=== PATIENT | male | born 1960 | race African-American/Black ===

== ENCOUNTER 2017-02-01 04:23 | Emergency (ER) | payer MEDICARE, OTHER ==
[2017-02-01 04:45] VITALS: BP 136/79; PULSE 74; RESP 20; TEMP 97.8
[2017-02-01] MEDS ORDERED: ONDANSETRON 4 MG/2 ML VIAL IVP STA (05:07)
[2017-02-01] MEDS ORDERED: SODIUM CHLORIDE 0.9% 1,000 ML IV STA (05:07)
[2017-02-01] MEDS ORDERED: MORPHINE SULFATE 4 MG/ML SYRINGE IV STA (05:07)
--- NOTE | 2017-02-01 05:11 | ED ---
Nausea/Vomiting/Diarrhea HPI - General Chief complaint: Nausea/Vomiting/Diarrhea Stated complaint: abd pain Time Seen by Provider: 02/01/17 05:02 Source: patient Mode of arrival: ambulatory Limitations: no limitations - History of Present Illness Initial comments: This patient's 56-year-old man with history of pancreatitis who presents to be evaluated for vomiting and abdominal pain that he states are identical to his previous pancreatitis. The patient states however that he is out of the usual Zofran that he takes, and that if he had that at home he may have been able to avoid coming in for this. The patient states that the pain is about usual with his flareups. He has now noticed any blood or coffee-ground emesis. He has vomited mainly anything he has had to drink and he had an episode of possible bile. Patient denies change in urination or bowel movements. MD complaint: nausea, vomiting, abdominal pain Onset/Timin -: hour(s) Description of Vomiting: food contents, bilious Associated Abdominal Pain: Yes Location: LUQ, RUQ Radiation: none Severity: moderate Quality: aching Consistency: constant Improves with: none Worsens with: none - Related Data Home Medications Medication Instructions Recorded Confirmed Ondansetron Odt [Zofran ODT] 8 mg PO Q8HR PRN 04/16/15 02/01/17 Previous Rx's Medication Instructions Recorded Ondansetron Odt [Zofran ODT] 4 mg PO Q8HR PRN #10 tab 02/01/17 Allergies Allergy/AdvReac Type Severity Reaction Status Date / Time codeine phosphate AdvReac Nausea Verified 07/12/15 20:49 [From Tylenol-Codeine #3] brazil nuts Allergy Unknown Uncoded 07/12/15 20:49 Review of Systems ROS Statement: Those systems with pertinent positive or pertinent negative responses have been documented in the HPI. ROS Other: All systems not noted in ROS Statement are negative. Constitutional: Denies: fever, chills Respiratory: Denies: cough, dyspnea Cardiovascular: Denies: chest pain, edema, syncope Gastrointestinal: Reports: abdominal pain, nausea, vomiting. Denies: diarrhea, constipation, melena, hematochezia Genitourinary: Denies: dysuria, hematuria Musculoskeletal: Reports: back pain Skin: Denies: rash Neurological: Denies: headache, weakness, numbness Past Medical History Additional Past Medical History / Comment(s): chronic abd pain, pancreatitis, celiac, celiac arterial compression syndrome, History of Any Multi-Drug Resistant Organisms: None Reported Past Surgical History: Hernia Repair Additional Past Surgical History / Comment(s): colonoscopy, endoscopy, Past Psychological History: No Psychological Hx Reported Smoking Status: Current every day smoker Past Alcohol Use History: None Reported Past Drug Use History: Marijuana General Exam Limitations: no limitations General appearance: alert, in no apparent distress Head exam: Present: atraumatic, normocephalic Eye exam: Present: normal appearance. Absent: scleral icterus, conjunctival injection ENT exam: Present: mucous membranes dry Respiratory exam: Present: normal lung sounds bilaterally. Absent: respiratory distress, wheezes, rales, rhonchi, stridor Cardiovascular Exam: Present: regular rate, normal rhythm, normal heart sounds. Absent: systolic murmur, diastolic murmur, rubs, gallop GI/Abdominal exam: Present: soft, tenderness, guarding, diminished bowel sounds. Absent: distended, rebound, rigid, mass, pulsatile mass, hernia Extremities exam: Present: normal inspection, normal capillary refill. Absent: pedal edema, calf tenderness Back exam: Present: normal inspection. Absent: CVA tenderness (R), CVA tenderness (L) Psychiatric exam: Present: anxious Skin exam: Present: warm, dry, intact, normal color. Absent: rash Course Vital Signs 02/01/17 04:43 Temperature 97.8 F Pulse Rate 74 Respiratory 20 Rate Blood Pressure 136/79 O2 Sat by Pulse 98 Oximetry Medical Decision Making - Lab Data Result diagrams: 02/01/17 05:40 02/01/17 05:40 Lab Results 02/01/17 02/01/17 Range/Units 05:40 05:40 WBC 13.4 H (3.8-10.6) k/uL RBC 4.43 (4.30-5.90) m/uL Hgb 12.2 L (13.0-17.5) gm/dL Hct 37.3 L (39.0-53.0) % MCV 84.2 (80.0-100.0) fL MCH 27.5 (25.0-35.0) pg MCHC 32.6 (31.0-37.0) g/dL RDW 16.8 H (11.5-15.5) % Plt Count 360 (150-450) k/uL Neutrophils % 83 % Lymphocytes % 10 % Monocytes % 5 % Eosinophils % 1 % Basophils % 1 % Neutrophils # 11.1 H (1.3-7.7) k/uL Lymphocytes # 1.4 (1.0-4.8) k/uL Monocytes # 0.6 (0-1.0) k/uL Eosinophils # 0.1 (0-0.7) k/uL Basophils # 0.1 (0-0.2) k/uL Anisocytosis Slight Sodium 138 (137-145) mmol/L Potassium 4.5 (3.5-5.1) mmol/L Chloride 105 (98-107) mmol/L Carbon Dioxide 22 (22-30) mmol/L Anion Gap 11 mmol/L BUN 9 (9-20) mg/dL Creatinine 1.00 (0.66-1.25) mg/dL Est GFR (MDRD) Af Amer >60 (>60 ml/min/1.73 sqM) Est GFR (MDRD) Non-Af >60 (>60 ml/min/1.73 sqM) Glucose 110 H (74-99) mg/dL Calcium 9.5 (8.4-10.2) mg/dL Total Bilirubin 0.4 (0.2-1.3) mg/dL AST 18 (17-59) U/L ALT 22 (21-72) U/L Alkaline Phosphatase 93 (38-126) U/L Total Protein 7.5 (6.3-8.2) g/dL Albumin 4.1 (3.5-5.0) g/dL Amylase 37 (30-110) U/L Lipase 67 (23-300) U/L Disposition Clinical Impression: Abdominal pain Disposition: HOME SELF-CARE Condition: Good Instructions: Abdominal Pain (ED), Acute Nausea and Vomiting (ED) Prescriptions: Ondansetron Odt [Zofran ODT] 4 mg PO Q8HR PRN #10 tab PRN Reason: Nausea Referrals: Princess Mcgrath DO [Primary Care Provider] - 1-2 days
[2017-02-01 06:26] LABS: Anisocytosis Slight; Basophils # (A) 0.1 k/uL (0-0.2); Basophils % (A) 1 %; CH 27.9; CHCM 33.3; Eosinophils # (A) 0.1 k/uL (0-0.7); Eosinophils % (A) 1 %; HCT 37.3 % (39.0-53.0); HGB 12.2 gm/dL (13.0-17.5); Luc # (Auto) 0.21; Luc % (Auto) 2; Lymphocytes # (A) 1.4 k/uL (1.0-4.8); Lymphocytes % (A) 10 %; MCH 27.5 pg (25.0-35.0); MCHC 32.6 g/dL (31.0-37.0); MCV 84.2 fL (80.0-100.0); Mean Platelet Volume 7.6; Monocytes # (A) 0.6 k/uL (0-1.0); Monocytes % (A) 5 %; Neutrophils # (A) 11.1 k/uL (1.3-7.7); Neutrophils % (A) 83 %; RBC 4.43 m/uL (4.30-5.90); RDW 16.8 % (11.5-15.5); WBC 13.4 k/uL (3.8-10.6); WBC (Perox) 13.23
[2017-02-01 06:37] LABS: ALT 22 U/L (21-72); AST 18 U/L (17-59); Alkaline Phosphatase 93 U/L (38-126); Amylase 37 U/L (30-110); Anion Gap 11 mmol/L; Blood Urea Nitrogen 9 mg/dL (9-20); Calcium 9.5 mg/dL (8.4-10.2); Carbon Dioxide 22 mmol/L (22-30); Chloride 105 mmol/L (98-107); Glucose 110 mg/dL (74-99); Non-African American GFR(MDRD) >60 (>60 ml/min/1.73 sqM); Potassium 4.5 mmol/L (3.5-5.1); Sodium 138 mmol/L (137-145); Total Bilirubin 0.4 mg/dL (0.2-1.3); Total Protein 7.5 g/dL (6.3-8.2)
[2017-02-01 06:52] LABS: Appearance,Urine Clear (Clear); Bilirubin,Urine Negative (Negative); Glucose,Urine (UA) Negative (Negative); Ketones,Urine Negative (Negative); Leukocyte Esterase,Urine Negative (Negative); Nitrite,Urine Negative (Negative); PH, Urine 6.5 (5.0-8.0); Protein,Urine Negative (Negative); Specific Gravity,Urine 1.006 (1.001-1.035); UA Billing (MACRO vs. MICRO) CHEM; Urobilinogen,Urine <2.0 mg/dL (<2.0)
== END 2017-02-01 07:00 | disposition home or self-care (01) ==
LOC: EC 04:23
DX: R10.11 Right upper quadrant pain (principal); R10.12 Left upper quadrant pain; R11.14 Bilious vomiting; R11.0 Nausea; G89.29 Other chronic pain; F17.200 Nicotine dependence, unspecified, uncomplicated; Z88.5 Allergy status to narcotic agent; Z91.018 Allergy to other foods; Z98.890 Other specified postprocedural states
CPT/HCPCS: 99284 ×2; 96374 ×2; 96375 ×2; 96361 ×2; 36415; 80053; 82150; 83690; 85025; 81003; J2270; J2405

== ENCOUNTER 2017-02-28 06:05 | Emergency (ER) | payer MEDICARE, OTHER ==
[2017-02-28] MEDS ORDERED: ONDANSETRON 4 MG/2 ML VIAL IVP STA (06:25)
[2017-02-28] MEDS ORDERED: MORPHINE SULFATE 4 MG/ML SYRINGE IV STA (06:25)
[2017-02-28] MEDS ORDERED: RX INFO: IV CONTRAST WAS GIVEN 1 EACH MISC MISCELLANE PRN (06:25)
[2017-02-28] MEDS ORDERED: SODIUM CHLORIDE 0.9% 1,000 ML IV STA (06:25)
[2017-02-28] MEDS ORDERED: FAMOTIDINE 20 MG/2 ML VIAL IV STA (06:26)
--- NOTE | 2017-02-28 06:32 | ED ---
General Adult HPI - General Source: patient, RN notes reviewed Mode of arrival: ambulatory Limitations: no limitations <Ibrahima Lind - Last Filed: 02/28/17 06:30> <Andre Stanley - Last Filed: 02/28/17 09:13> - General Chief complaint: Abdominal Pain Stated complaint: Nausea/Abdominal Pain Time Seen by Provider: 02/28/17 06:16 - History of Present Illness Initial comments: Patient is a pleasant 56-year-old male presenting to the emergency department complaining of abdominal discomfort. Patient has chronic abdominal pain. Onset of symptoms was just a couple hours ago. Patient does see a terminal operator every few months. Patient has not seen him in a few months. Patient states over the past few years this is happened 100s of times. Patient had an episode of vomiting. Patient has abdominal discomfort in the epigastric region. Patient states his symptoms are from his chronic pancreatitis. Patient states he is on disability for this. (Ibrahima Lind) - Related Data Previous Rx's Medication Instructions Recorded Ondansetron Odt [Zofran ODT] 4 mg PO Q8HR PRN #10 tab 02/01/17 Omeprazole [PriLOSEC] 40 mg PO DAILY #30 capsule. 02/28/17 Ondansetron [Zofran ODT] 8 mg PO Q8HR PRN #20 tab 02/28/17 Allergies Allergy/AdvReac Type Severity Reaction Status Date / Time codeine phosphate AdvReac Nausea Verified 02/28/17 08:07 [From Tylenol-Codeine #3] brazil nuts Allergy Unknown Uncoded 07/12/15 20:49 Review of Systems ROS Other: All systems not noted in ROS Statement are negative. Constitutional: Denies: fever Eyes: Denies: eye pain ENT: Denies: ear pain Respiratory: Denies: cough Cardiovascular: Denies: chest pain Endocrine: Denies: fatigue Gastrointestinal: Reports: abdominal pain, nausea, vomiting Genitourinary: Denies: dysuria Musculoskeletal: Denies: back pain Skin: Denies: rash Neurological: Denies: weakness <Ibrahima Lind - Last Filed: 02/28/17 06:30> ROS Other: All systems not noted in ROS Statement are negative. <Andre Stanley - Last Filed: 02/28/17 09:13> ROS Statement: Those systems with pertinent positive or pertinent negative responses have been documented in the HPI. Past Medical History Additional Past Medical History / Comment(s): chronic abd pain, pancreatitis, celiac, celiac arterial compression syndrome, History of Any Multi-Drug Resistant Organisms: None Reported Past Surgical History: Hernia Repair Additional Past Surgical History / Comment(s): colonoscopy, endoscopy, Past Psychological History: No Psychological Hx Reported Smoking Status: Current every day smoker Past Alcohol Use History: None Reported Past Drug Use History: Marijuana <Ibrahima Lind - Last Filed: 02/28/17 06:30> General Exam Limitations: no limitations General appearance: alert, anxious Head exam: Present: atraumatic Eye exam: Present: normal appearance ENT exam: Present: normal oropharynx Neck exam: Present: normal inspection Respiratory exam: Present: normal lung sounds bilaterally Cardiovascular Exam: Present: regular rate, normal rhythm Expanded Peripheral pulses: 2+: Dorsalis Pedis (R), Dorsalis Pedis (L) GI/Abdominal exam: Present: soft, tenderness (Mild epigastric tenderness to palpation), normal bowel sounds. Absent: distended, guarding, rebound, rigid, pulsatile mass Extremities exam: Present: normal inspection. Absent: pedal edema, calf tenderness Back exam: Present: normal inspection Neurological exam: Present: alert Psychiatric exam: Present: anxious Skin exam: Present: diaphoretic <Ibrahima Lind - Last Filed: 02/28/17 06:30> Medical Decision Making <Ibrahima Lind - Last Filed: 02/28/17 06:30> - Lab Data Result diagrams: 02/28/17 06:55 02/28/17 06:55 <Andre Stanley - Last Filed: 02/28/17 09:13> - Medical Decision Making The patient was seen and examined. Report was received from previous shift. All diagnostics were reviewed. It does appear as though he has some chronic abdominal pain and had an acute exacerbation today. He does see a GI specialist regularly for this. He has a history of chronic pancreatitis. He is previously had H. pylori. He is feeling remarkably improved on recheck after receiving medications and fluids. He feels well enough for discharge. His white blood cell count is mildly elevated. The KUB was negative. The computed tomography scan of the abdomen and pelvis showed possible stomach wall thickening consistent with gastroenteritis. There is some fluid-filled loops of bowel possibly related to gastroenteritis. It is felt as though he is stable for discharge and leaves in no distress. (Andre Stanley) - Lab Data Lab Results 02/28/17 02/28/17 02/28/17 Range/Units 06:55 06:55 06:55 WBC 14.2 H (3.8-10.6) k/uL RBC 4.66 (4.30-5.90) m/uL Hgb 12.7 L (13.0-17.5) gm/dL Hct 38.7 L (39.0-53.0) % MCV 83.1 (80.0-100.0) fL MCH 27.2 (25.0-35.0) pg MCHC 32.7 (31.0-37.0) g/dL RDW 17.0 H (11.5-15.5) % Plt Count 364 (150-450) k/uL Neutrophils % 73 % Lymphocytes % 18 % Monocytes % 5 % Eosinophils % 2 % Basophils % 1 % Neutrophils # 10.3 H (1.3-7.7) k/uL Lymphocytes # 2.5 (1.0-4.8) k/uL Monocytes # 0.7 (0-1.0) k/uL Eosinophils # 0.2 (0-0.7) k/uL Basophils # 0.1 (0-0.2) k/uL Anisocytosis Slight PT (9.0-12.0) sec INR (<1.1) APTT (22.0-30.0) sec Sodium 140 (137-145) mmol/L Potassium 4.2 (3.5-5.1) mmol/L Chloride 105 (98-107) mmol/L Carbon Dioxide 22 (22-30) mmol/L Anion Gap 13 mmol/L BUN 11 (9-20) mg/dL Creatinine 1.02 (0.66-1.25) mg/dL Est GFR (MDRD) Af Amer >60 (>60 ml/min/1.73 sqM) Est GFR (MDRD) Non-Af >60 (>60 ml/min/1.73 sqM) Glucose 116 H (74-99) mg/dL Plasma Lactic Acid Ronald (0.7-2.0) mmol/L Calcium 9.4 (8.4-10.2) mg/dL Total Bilirubin 0.3 (0.2-1.3) mg/dL AST 24 (17-59) U/L ALT 22 (21-72) U/L Alkaline Phosphatase 102 (38-126) U/L Total Creatine Kinase 331 H (55-170) U/L CK-MB (CK-2) 2.0 (0.0-2.4) ng/mL CK-MB (CK-2) Rel Index 0.6 Troponin I <0.012 (0.000-0.034) ng/mL Total Protein 7.8 (6.3-8.2) g/dL Albumin 4.3 (3.5-5.0) g/dL Amylase 45 (30-110) U/L Lipase 81 (23-300) U/L Urine Color Urine Appearance (Clear) Urine pH (5.0-8.0) Ur Specific [place] (1.001-1.035) Urine Protein (Negative) Urine Glucose (UA) (Negative) Urine Ketones (Negative) Urine Blood (Negative) Urine Nitrite (Negative) Urine Bilirubin (Negative) Urine Urobilinogen (<2.0) mg/dL Ur Leukocyte Esterase (Negative) 02/28/17 02/28/17 02/28/17 Range/Units 06:55 06:55 08:18 WBC (3.8-10.6) k/uL RBC (4.30-5.90) m/uL Hgb (13.0-17.5) gm/dL Hct (39.0-53.0) % MCV (80.0-100.0) fL MCH (25.0-35.0) pg MCHC (31.0-37.0) g/dL RDW (11.5-15.5) % Plt Count (150-450) k/uL Neutrophils % % Lymphocytes % % Monocytes % % Eosinophils % % Basophils % % Neutrophils # (1.3-7.7) k/uL Lymphocytes # (1.0-4.8) k/uL Monocytes # (0-1.0) k/uL Eosinophils # (0-0.7) k/uL Basophils # (0-0.2) k/uL Anisocytosis PT 10.2 (9.0-12.0) sec INR 1.0 (<1.1) APTT 27.0 (22.0-30.0) sec Sodium (137-145) mmol/L Potassium (3.5-5.1) mmol/L Chloride (98-107) mmol/L Carbon Dioxide (22-30) mmol/L Anion Gap mmol/L BUN (9-20) mg/dL Creatinine (0.66-1.25) mg/dL Est GFR (MDRD) Af Amer (>60 ml/min/1.73 sqM) Est GFR (MDRD) Non-Af (>60 ml/min/1.73 sqM) Glucose (74-99) mg/dL Plasma Lactic Acid Ronald 1.4 (0.7-2.0) mmol/L Calcium (8.4-10.2) mg/dL Total Bilirubin (0.2-1.3) mg/dL AST (17-59) U/L ALT (21-72) U/L Alkaline Phosphatase (38-126) U/L Total Creatine Kinase (55-170) U/L CK-MB (CK-2) (0.0-2.4) ng/mL CK-MB (CK-2) Rel Index Troponin I (0.000-0.034) ng/mL Total Protein (6.3-8.2) g/dL Albumin (3.5-5.0) g/dL Amylase (30-110) U/L Lipase (23-300) U/L Urine Color Light Yellow Urine Appearance Clear (Clear) Urine pH 7.0 (5.0-8.0) Ur Specific [place] 1.021 (1.001-1.035) Urine Protein Negative (Negative) Urine Glucose (UA) Negative (Negative) Urine Ketones Negative (Negative) Urine Blood Negative (Negative) Urine Nitrite Negative (Negative) Urine Bilirubin Negative (Negative) Urine Urobilinogen <2.0 (<2.0) mg/dL Ur Leukocyte Esterase Negative (Negative) Disposition <Ibrahima Lind - Last Filed: 02/28/17 06:30> Time of Disposition: 09:13 <Andre Stanley - Last Filed: 02/28/17 09:13> Clinical Impression: Abdominal pain, Gastritis, Nausea and vomiting, Gastroenteritis Disposition: HOME SELF-CARE Condition: Good Instructions: Abdominal Pain (ED), Gastritis (ED) Prescriptions: Omeprazole [PriLOSEC] 40 mg PO DAILY #30 capsule. Ondansetron [Zofran ODT] 8 mg PO Q8HR PRN #20 tab PRN Reason: Nausea And Vomiting Referrals: Princess Mcgrath DO [Primary Care Provider] - 1-2 days
[2017-02-28 07:15] LABS: Anisocytosis Slight; Basophils # (A) 0.1 k/uL (0-0.2); Basophils % (A) 1 %; CH 27.7; CHCM 33.6; Eosinophils # (A) 0.2 k/uL (0-0.7); Eosinophils % (A) 2 %; HCT 38.7 % (39.0-53.0); HDW 2.94; HGB 12.7 gm/dL (13.0-17.5); Luc # (Auto) 0.37; Luc % (Auto) 3; Lymphocytes # (A) 2.5 k/uL (1.0-4.8); Lymphocytes % (A) 18 %; MCH 27.2 pg (25.0-35.0); MCHC 32.7 g/dL (31.0-37.0); MCV 83.1 fL (80.0-100.0); Mean Platelet Volume 6.6; Monocytes # (A) 0.7 k/uL (0-1.0); Monocytes % (A) 5 %; Neutrophils # (A) 10.3 k/uL (1.3-7.7); Neutrophils % (A) 73 %; RBC 4.66 m/uL (4.30-5.90); WBC 14.2 k/uL (3.8-10.6); WBC (Perox) 14.39
[2017-02-28 07:25] LABS: ALT 22 U/L (21-72); AST 24 U/L (17-59); Alkaline Phosphatase 102 U/L (38-126); Amylase 45 U/L (30-110); Anion Gap 13 mmol/L; Blood Urea Nitrogen 11 mg/dL (9-20); Calcium 9.4 mg/dL (8.4-10.2); Carbon Dioxide 22 mmol/L (22-30); Chloride 105 mmol/L (98-107); Glucose 116 mg/dL (74-99); Non-African American GFR(MDRD) >60 (>60 ml/min/1.73 sqM); Potassium 4.2 mmol/L (3.5-5.1); Sodium 140 mmol/L (137-145); Total Bilirubin 0.3 mg/dL (0.2-1.3); Total Protein 7.8 g/dL (6.3-8.2)
[2017-02-28 07:38] LABS: Creatine Kinase 331 U/L (55-170)
[2017-02-28 07:44] LABS: Prothrombin Time 10.2 sec (9.0-12.0)
[2017-02-28 07:50] LABS: Troponin I <0.012 ng/mL (0.000-0.034)
--- NOTE | 2017-02-28 08:03 | XR ---
EXAMINATION TYPE: XR KUB DATE OF EXAM: 02/28/2017 7:10 AM COMPARISON: NONE INDICATION: Abdomen pain vomiting nausea TECHNIQUE: Single view abdomen supine view FINDINGS: There is a nonspecific bowel gas pattern with air within small bowel loops as well as the colon. No m ass effect is evident. Psoas margins are normal. No organomegaly is present. IMPRESSION: 1. Nonspecific abdomen.
--- NOTE | 2017-02-28 08:21 | CT ---
EXAMINATION TYPE: CT abdomen pelvis w con DATE OF EXAM: 02/28/2017 8:03 AM COMPARISON: 11/24/2016 HISTORY: 56-year-old male complains of epigastric pain, nausea, and vomiting. Patient has a prior hi story of H. Pylori. TECHNIQUE: Contiguous axial scanning of the abdomen and pelvis following administration of 100 ml Omn ipaque 300 IV contrast. Delayed images through the kidneys and coronal/sagittal reconstructions perf ormed. CT DLP: 509.6 mGycm Automated exposure control for dose reduction was used. FINDINGS: Heart is normal size without pericardial effusion. Lung bases clear without pleural effusion. There may be mild gastric fold thickening along the fundus and proximal body. Scattered subcentimeter hypodensities within the liver are too small for accurate CT characterization but are unchanged from 11/24/2016 and likely represent cysts. Portal venous system is patent. No aneesh iary ductal dilatation. There is a diverticulum of the second portion of the duodenum projecting into the pancreatic head region. Gallbladder, adrenal glands, left kidney, spleen, and pancreas appear within normal limits. Subcentim eter hypodensity posterior mid to lower pole right kidney too small fractured CT characterization, li je cyst. There is symmetric uptake and excretion of contrast by both kidneys. No dilated small bowel, free fluid, or free air. Some prominent fluid filled small bowel loops are present in the lower abdomen. Mild overall stable. No pericolonic inflammatory change seen. A prominent caliber but otherwise normal air-filled appendix is identified. No mesenteric or retroperitoneal lymphadenopathy. Bladder is urine distended. No abnormal fluid collection in the pelvis or pelvic lymphadenopathy seen . Bones: Mild to moderate multilevel degenerative disc disease. IMPRESSION: THERE MAY BE MILD FOLD THICKENING OF THE GASTRIC FUNDUS AND PROXIMAL BODY. THERE IS ALSO SOME PROMINE NT FLUID WITHIN LOWER ABDOMINAL SMALL BOWEL LOOPS WITHOUT OBSTRUCTION. CORRELATE FOR GASTROENTERITIS.
[2017-02-28 08:26] LABS: Appearance,Urine Clear (Clear); Bilirubin,Urine Negative (Negative); Glucose,Urine (UA) Negative (Negative); Ketones,Urine Negative (Negative); Leukocyte Esterase,Urine Negative (Negative); Nitrite,Urine Negative (Negative); Protein,Urine Negative (Negative); Specific Gravity,Urine 1.021 (1.001-1.035); UA Billing (MACRO vs. MICRO) CHEM; Urobilinogen,Urine <2.0 mg/dL (<2.0)
[2017-02-28 09:28] VITALS: BP 141/89; PULSE 74; RESP 15; TEMP 97.7
== END 2017-02-28 09:28 | disposition home or self-care (01) ==
LOC: EC 06:05
DX: K52.9 Noninfective gastroenteritis and colitis, unspecified (principal); K29.70 Gastritis, unspecified, without bleeding; R11.2 Nausea with vomiting, unspecified; F17.200 Nicotine dependence, unspecified, uncomplicated; Z91.018 Allergy to other foods; Z88.5 Allergy status to narcotic agent; Z87.19 Personal history of other diseases of the digestive system; Z98.890 Other specified postprocedural states
CPT/HCPCS: 36415; 80053; 82150; 82550; 82553; 83605; 83690; 84484; 85025; 85610; 85730; 81003; 74000; 74177; 99284; 96374; 96375 ×2; 96361; J2270; J2405; Q9967

== ENCOUNTER 2017-04-12 14:17 | Emergency (ER) | payer MEDICARE, OTHER ==
[2017-04-12] MEDS ORDERED: ONDANSETRON ODT 8 MG TAB.RAPDIS PO STA (15:31)
--- NOTE | 2017-04-12 15:32 | ED ---
General Adult HPI - General Chief complaint: Abdominal Pain Stated complaint: Abd pain Time Seen by Provider: 04/12/17 15:21 Source: patient, family, RN notes reviewed Mode of arrival: ambulatory Limitations: no limitations - History of Present Illness Initial comments: 56-year-old male with history of pancreatitis and chronic abdominal pain presenting for abdominal pain and nausea and vomiting. Patient states that his pain is not severe but he has had significant nausea and vomiting since 5 AM this morning. He states he didn't want come to the ED but eventually his significant other convinced him. States he is previously Zofran with good symptom control of his nausea and vomiting. Currently out of this medication. He states he does follow up with his PCP and GI specialist frequently. States his pain is similar to his prior abdominal pain. He denies any fevers or chills. He denies any chest pain or shortness of breath. - Related Data Previous Rx's Medication Instructions Recorded Ondansetron [Zofran ODT] 8 mg PO Q8HR PRN #20 tab 02/28/17 Ondansetron Odt [Zofran Odt] 8 mg PO Q8HR PRN #30 tab 04/12/17 Allergies Allergy/AdvReac Type Severity Reaction Status Date / Time codeine phosphate AdvReac Nausea Verified 04/12/17 15:45 [From Tylenol-Codeine #3] brazil nuts Allergy Unknown Uncoded 04/12/17 14:20 Review of Systems ROS Statement: Those systems with pertinent positive or pertinent negative responses have been documented in the HPI. ROS Other: All systems not noted in ROS Statement are negative. Past Medical History Additional Past Medical History / Comment(s): chronic abd pain, pancreatitis, celiac, celiac arterial compression syndrome, History of Any Multi-Drug Resistant Organisms: None Reported Past Surgical History: Hernia Repair Additional Past Surgical History / Comment(s): colonoscopy, endoscopy, Past Psychological History: No Psychological Hx Reported Smoking Status: Current every day smoker Past Alcohol Use History: None Reported Past Drug Use History: Marijuana General Exam - General Exam Comments Initial Comments: General: Awake and Alert. No acute distress. Does not appear acutely ill. Eyes: JIA, EOM intact. No nystagmus. No scleral icterus. HENT: Atraumatic, normocephalic. Mucous membranes moist. Trachea midline. Neck: The neck is supple, there is no tenderness or JVD. Cardiovascular: Regular rate and rhythm. No murmur, rub, or gallop is appreciated. Distal pulses intact. Respiratory: Lungs are clear to auscultation bilaterally. No wheezes, rales, rhonchi. No respiratory distress. Gastrointestinal: Soft, mild diffuse abdominal tenderness. No rebound or guarding. Non-distended. No masses or organomegaly noted. No CVA tenderness. Musculoskeletal: No tenderness. Normal ROM. No gross deformity. No strength deficits. Neurological: A&Ox3. CN II-XII grossly intact, There are no obvious motor or sensory deficits. Coordination appears grossly intact. Speech is normal. Skin: Skin is warm and dry and no rashes or lesions are noted. Psychiatric: Cooperative, appropriate mood & affect, normal judgment. Limitations: no limitations Course Vital Signs 04/12/17 14:19 Temperature 98.9 F Pulse Rate 92 Respiratory 20 Rate Blood Pressure 143/96 O2 Sat by Pulse 98 Oximetry Medical Decision Making - Medical Decision Making 56-year-old male with history of chronic pancreatitis presenting for abdominal pain and nausea and vomiting. Patient states his primary complaint is nausea and vomiting and states his abdominal pain is not that severe right now. He declines any pain medication. He declines an IV. He is asking just for an ODT Zofran. This was ordered. Lab work was stable CBC with mild leukocytosis which is likely reactive. BMP is grossly unremarkable. LFTs are stable. Lipase is negative. Patient reevaluated, states he is feeling much improved after the Zofran. States he wishes to go at this time. Updated on results. Discussed continued symptomatic management with Zofran and Rx provided. Discussed close follow-up with PCP and GI specialist. Discussed concerning signs symptoms for immediate return to the ER. Patient is agreeable with plan and discharge home. - Lab Data Result diagrams: 04/12/17 15:34 04/12/17 15:34 Lab Results 04/12/17 04/12/17 Range/Units 15:34 15:34 WBC 10.8 H (3.8-10.6) k/uL RBC 4.73 (4.30-5.90) m/uL Hgb 13.1 (13.0-17.5) gm/dL Hct 40.5 (39.0-53.0) % MCV 85.6 (80.0-100.0) fL MCH 27.7 (25.0-35.0) pg MCHC 32.4 (31.0-37.0) g/dL RDW 17.0 H (11.5-15.5) % Plt Count 351 (150-450) k/uL Neutrophils % 76 % Lymphocytes % 16 % Monocytes % 5 % Eosinophils % 1 % Basophils % 1 % Neutrophils # 8.2 H (1.3-7.7) k/uL Lymphocytes # 1.7 (1.0-4.8) k/uL Monocytes # 0.5 (0-1.0) k/uL Eosinophils # 0.1 (0-0.7) k/uL Basophils # 0.1 (0-0.2) k/uL Anisocytosis Slight Sodium 142 (137-145) mmol/L Potassium 4.4 (3.5-5.1) mmol/L Chloride 110 H (98-107) mmol/L Carbon Dioxide 20 L (22-30) mmol/L Anion Gap 12 mmol/L BUN 15 (9-20) mg/dL Creatinine 0.90 (0.66-1.25) mg/dL Est GFR (MDRD) Af Amer >60 (>60 ml/min/1.73 sqM) Est GFR (MDRD) Non-Af >60 (>60 ml/min/1.73 sqM) Glucose 102 H (74-99) mg/dL Calcium 9.9 (8.4-10.2) mg/dL Total Bilirubin 0.7 (0.2-1.3) mg/dL AST 26 (17-59) U/L ALT 32 (21-72) U/L Alkaline Phosphatase 92 (38-126) U/L Total Protein 8.0 (6.3-8.2) g/dL Albumin 4.6 (3.5-5.0) g/dL Lipase 44 (23-300) U/L Disposition Clinical Impression: Chronic abdominal pain, Nausea and vomiting Disposition: HOME SELF-CARE Condition: Stable Instructions: Acute Nausea and Vomiting (ED), Abdominal Pain (ED) Prescriptions: Ondansetron Odt [Zofran Odt] 8 mg PO Q8HR PRN #30 tab PRN Reason: Nausea And Vomiting Referrals: Princess Mcgrath DO [Primary Care Provider] - 1-2 days Time of Disposition: 16:34
[2017-04-12 15:54] LABS: Anisocytosis Slight; Basophils # (A) 0.1 k/uL (0-0.2); Basophils % (A) 1 %; CH 27.9; CHCM 32.9; Eosinophils # (A) 0.1 k/uL (0-0.7); Eosinophils % (A) 1 %; HCT 40.5 % (39.0-53.0); HGB 13.1 gm/dL (13.0-17.5); Luc # (Auto) 0.25; Luc % (Auto) 2; Lymphocytes # (A) 1.7 k/uL (1.0-4.8); Lymphocytes % (A) 16 %; MCH 27.7 pg (25.0-35.0); MCHC 32.4 g/dL (31.0-37.0); MCV 85.6 fL (80.0-100.0); Mean Platelet Volume 6.5; Monocytes # (A) 0.5 k/uL (0-1.0); Monocytes % (A) 5 %; Neutrophils # (A) 8.2 k/uL (1.3-7.7); Neutrophils % (A) 76 %; RBC 4.73 m/uL (4.30-5.90); WBC 10.8 k/uL (3.8-10.6); WBC (Perox) 9.79
[2017-04-12 16:05] LABS: ALT 32 U/L (21-72); AST 26 U/L (17-59); Alkaline Phosphatase 92 U/L (38-126); Anion Gap 12 mmol/L; Blood Urea Nitrogen 15 mg/dL (9-20); Calcium 9.9 mg/dL (8.4-10.2); Carbon Dioxide 20 mmol/L (22-30); Chloride 110 mmol/L (98-107); Glucose 102 mg/dL (74-99); Non-African American GFR(MDRD) >60 (>60 ml/min/1.73 sqM); Potassium 4.4 mmol/L (3.5-5.1); Sodium 142 mmol/L (137-145); Total Bilirubin 0.7 mg/dL (0.2-1.3)
[2017-04-12 16:47] VITALS: BP 138/82; PULSE 66; RESP 18; TEMP 98.2
== END 2017-04-12 16:57 | disposition home or self-care (01) ==
LOC: EC 14:17
DX: G89.29 Other chronic pain (principal); R10.84 Generalized abdominal pain; R11.2 Nausea with vomiting, unspecified; F17.200 Nicotine dependence, unspecified, uncomplicated; Z88.5 Allergy status to narcotic agent; Z91.018 Allergy to other foods; Z87.19 Personal history of other diseases of the digestive system; Z98.890 Other specified postprocedural states
CPT/HCPCS: 36415; 80053; 83690; 85025; 99284

== ENCOUNTER 2019-03-16 19:19 | Emergency (ER) | payer MEDICARE ==
[2019-03-16] MEDS ORDERED: SODIUM CHLORIDE 0.9% 1,000 ML IV STA (19:58)
[2019-03-16] MEDS ORDERED: KETOROLAC 30 MG/ML 1 ML VIAL IVP STA (19:58)
[2019-03-16] MEDS ORDERED: ONDANSETRON 4 MG/2 ML VIAL IVP STA (19:58)
--- NOTE | 2019-03-16 20:11 | ED ---
General Adult HPI - General Source: patient, RN notes reviewed Mode of arrival: ambulatory Limitations: no limitations <Pedro Harding P - Last Filed: 03/17/19 20:05> <Kay Kaplan P - Last Filed: 03/18/19 01:50> - General Chief complaint: Abdominal Pain Stated complaint: nausea, vomiting, gas pain Time Seen by Provider: 03/16/19 19:38 - History of Present Illness Initial comments: 58-year-old male with a past medical history of chronic abdominal pain, pancreatitis, H pylori presents to the emergency determine for chief complaint of abdominal pain. Patient states this pain is in his umbilical and right lower quadrant area. States this started this morning after drinking prune juice to produce a bowel movement. States he has been very nauseous and has vomited about 3 times. States he had one bout of diarrhea yesterday. patient saw his GI specialist yesterday who recommended he take MiraLAX as he has had intense patient for the past several weeks. Patient has no other complaints at this time including shortness of breath, chest pain, headache, or visual changes. (Pedro Harding) - Related Data Home Medications Medication Instructions Recorded Confirmed Akcti-C-Erfdgxmpmvxkt [Beano] 300 unit PO Q8H PRN 03/16/19 03/16/19 Calcium Carb/Magnesium Hydrox 2 tab PO Q8H PRN 03/16/19 03/16/19 [Rolaids Chewable Tablet] Omeprazole 20 mg PO DAILY 03/16/19 03/16/19 Ondansetron HCl [Zofran] 8 mg PO Q8H PRN 03/16/19 03/16/19 Simethicone [Gas-X] 125 mg PO Q8H PRN 03/16/19 03/16/19 Allergies Allergy/AdvReac Type Severity Reaction Status Date / Time codeine phosphate AdvReac Nausea Verified 03/16/19 19:41 [From Tylenol-Codeine #3] brazil nuts Allergy Unknown Uncoded 04/12/17 14:20 Review of Systems ROS Other: All systems not noted in ROS Statement are negative. <Pedro Harding P - Last Filed: 03/17/19 20:05> ROS Other: All systems not noted in ROS Statement are negative. <Kay Kaplan P - Last Filed: 03/18/19 01:50> ROS Statement: Those systems with pertinent positive or pertinent negative responses have been documented in the HPI. Past Medical History Additional Past Medical History / Comment(s): chronic abd pain, pancreatitis, celiac, celiac arterial compression syndrome, History of Any Multi-Drug Resistant Organisms: None Reported Past Surgical History: Hernia Repair Additional Past Surgical History / Comment(s): colonoscopy, endoscopy, Past Psychological History: No Psychological Hx Reported Smoking Status: Current every day smoker Past Alcohol Use History: None Reported Past Drug Use History: Marijuana <Pedro Harding P - Last Filed: 03/17/19 20:05> General Exam Limitations: no limitations General appearance: alert, in no apparent distress Head exam: Present: atraumatic, normocephalic, normal inspection Eye exam: Present: normal appearance, PERRL, EOMI. Absent: scleral icterus, conjunctival injection, periorbital swelling ENT exam: Present: normal exam, mucous membranes moist Neck exam: Present: normal inspection, full ROM. Absent: tenderness, meningismus, lymphadenopathy Respiratory exam: Present: normal lung sounds bilaterally. Absent: respiratory distress, wheezes, rales, rhonchi, stridor Cardiovascular Exam: Present: regular rate, normal rhythm, normal heart sounds. Absent: systolic murmur, diastolic murmur, rubs, gallop, clicks GI/Abdominal exam: Present: soft, tenderness (Tenderness with guarding in the right lower quadrant and umbilical area), normal bowel sounds. Absent: distended, guarding, rebound, rigid Neurological exam: Present: alert, oriented X3, CN II-XII intact Psychiatric exam: Present: normal affect, normal mood <Pedro Harding P - Last Filed: 03/17/19 20:05> Course Vital Signs 03/16/19 03/16/19 03/17/19 19:26 22:24 00:29 Temperature 98.6 F 98.4 F 98.1 F Pulse Rate 109 H 101 H 73 Respiratory 22 26 H 16 Rate Blood Pressure 160/79 194/103 151/94 O2 Sat by Pulse 96 97 96 Oximetry Medical Decision Making - Lab Data Result diagrams: 03/16/19 19:50 03/16/19 19:50 <Pedro Harding P - Last Filed: 03/17/19 20:05> - Lab Data Result diagrams: 03/16/19 19:50 03/16/19 19:50 <Kay Kaplan - Last Filed: 03/18/19 01:50> - Medical Decision Making 58-year-old male with chronic abdominal pain presents for abdominal pain nausea vomiting and diarrhea times one day. Patient initially writhing in bed in pain. Patient was given Toradol which did not significantly help. Patient then given morphine which did seem to improve his pain significant. On exam patient does have right lower quadrant tenderness with periUmbilical tenderness. CBC shows a mild white count of 11. CMP unremarkable. No evidence of infection in the urine, patient given fluids. CT abdomen and pelvis did show evidence of gastroenteritis. Patient reevaluated, feeling much better. However as patient was in significant pain on presentation I did recommend admission. Patient refuses this stating he has had this for 5 years and no one knows what is wrong. He states he follows up with a GI specialist in [place] and would rather follow up with them. Patient just came here for pain relief. He will return here if he has any worsening symptoms. Patient eating applesauce on discharge. Patient initially tachycardic and hypertensive however this is likely due to pain as vitals did normalize throughout his stay. (Pedro Harding) I was available for consultation in the emergency department. The history and physical exam were done by the midlevel provider. I was consulted for this patient's care. I reviewed the case with the midlevel provider and based on their presentation of the patient, I agree with the assessment, medical decision making and plan of care as documented. (Kay Kaplan) - Lab Data Lab Results 03/16/19 03/16/19 03/16/19 Range/Units 19:50 19:50 23:00 WBC 11.7 H (3.8-10.6) k/uL RBC 4.70 (4.30-5.90) m/uL Hgb 14.5 (13.0-17.5) gm/dL Hct 42.8 (39.0-53.0) % MCV 91.0 (80.0-100.0) fL MCH 30.9 (25.0-35.0) pg MCHC 34.0 (31.0-37.0) g/dL RDW 15.1 (11.5-15.5) % Plt Count 377 (150-450) k/uL Neutrophils % 86 % Lymphocytes % 9 % Monocytes % 3 % Eosinophils % 1 % Basophils % 0 % Neutrophils # 10.0 H (1.3-7.7) k/uL Lymphocytes # 1.0 (1.0-4.8) k/uL Monocytes # 0.4 (0-1.0) k/uL Eosinophils # 0.1 (0-0.7) k/uL Basophils # 0.0 (0-0.2) k/uL Sodium 140 (137-145) mmol/L Potassium 4.3 (3.5-5.1) mmol/L Chloride 103 (98-107) mmol/L Carbon Dioxide 27 (22-30) mmol/L Anion Gap 10 mmol/L BUN 11 (9-20) mg/dL Creatinine 0.95 (0.66-1.25) mg/dL Est GFR (CKD-EPI)AfAm >90 (>60 ml/min/1.73 sqM) Est GFR (CKD-EPI)NonAf 87 (>60 ml/min/1.73 sqM) Glucose 146 H (74-99) mg/dL Calcium 10.1 (8.4-10.2) mg/dL Total Bilirubin 0.7 (0.2-1.3) mg/dL AST 21 (17-59) U/L ALT 23 (21-72) U/L Alkaline Phosphatase 112 (38-126) U/L Total Protein 8.0 (6.3-8.2) g/dL Albumin 4.7 (3.5-5.0) g/dL Amylase 37 (30-110) U/L Lipase 33 (23-300) U/L Urine Color Yellow Urine Appearance Clear (Clear) Urine pH 9.0 H (5.0-8.0) Ur Specific [place] >1.050 H (1.001-1.035) Urine Protein 2+ H (Negative) Urine Glucose (UA) Negative (Negative) Urine Ketones 1+ H (Negative) Urine Blood Negative (Negative) Urine Nitrite Negative (Negative) Urine Bilirubin Negative (Negative) Urine Urobilinogen <2.0 (<2.0) mg/dL Ur Leukocyte Esterase Negative (Negative) Urine RBC 1 (0-5) /hpf Urine WBC 2 (0-5) /hpf Urine Mucus Rare H (None) /hpf Disposition Is patient prescribed a controlled substance at d/c from ED?: No Time of Disposition: 23:30 <Pedro Harding P - Last Filed: 03/17/19 20:05> <Kay Kaplan P - Last Filed: 03/18/19 01:50> Clinical Impression: Abdominal pain, Nausea vomiting and diarrhea Disposition: HOME SELF-CARE Condition: Good Instructions (If sedation given, give patient instructions): Abdominal Pain (ED) Additional Instructions: Please follow-up with your GI specialist in 1-2 days. Please drink plenty of fluids. Return to the emergency department if you have any worsening symptoms. Referrals: Princess Mcgrath DO [Primary Care Provider] - 1-2 days Alexandra Trent MD [STAFF PHYSICIAN] - 1-2 days
[2019-03-16 20:12] LABS: Basophils % (A) 0 %; Eosinophils # (A) 0.1 k/uL (0-0.7); Eosinophils % (A) 1 %; HCT 42.8 % (39.0-53.0); HGB 14.5 gm/dL (13.0-17.5); Lymphocytes % (A) 9 %; MCH 30.9 pg (25.0-35.0); Mean Platelet Volume 6.4; Monocytes # (A) 0.4 k/uL (0-1.0); Monocytes % (A) 3 %; Neutrophils % (A) 86 %; Platelet Count 377 k/uL (150-450); RDW 15.1 % (11.5-15.5); WBC 11.7 k/uL (3.8-10.6)
[2019-03-16 20:23] LABS: ALT 23 U/L (21-72); AST 21 U/L (17-59); Albumin 4.7 g/dL (3.5-5.0); Alkaline Phosphatase 112 U/L (38-126); Amylase 37 U/L (30-110); Anion Gap 10 mmol/L; Blood Urea Nitrogen 11 mg/dL (9-20); Calcium 10.1 mg/dL (8.4-10.2); Carbon Dioxide 27 mmol/L (22-30); Chloride 103 mmol/L (98-107); Glucose 146 mg/dL (74-99); Lipase 33 U/L (23-300); Potassium 4.3 mmol/L (3.5-5.1); Sodium 140 mmol/L (137-145); Total Bilirubin 0.7 mg/dL (0.2-1.3)
[2019-03-16] MEDS ORDERED: MORPHINE SULFATE 4 MG/ML SYRINGE IVP STA (21:56)
--- NOTE | 2019-03-16 22:24 | CT ---
EXAMINATION TYPE: CT abdomen pelvis w con DATE OF EXAM: 03/16/2019 COMPARISON: 02/28/2017 HISTORY: 58-year-old male with abdominal pain. History of celiac arterial compression syndrome. TECHNIQUE: Contiguous axial scanning of the abdomen and pelvis following administration of 100 ml Iso ruiz 300 IV contrast. Delayed images through the kidneys and coronal/sagittal reconstructions perform ed. CT DLP: 713.3 mGycm Automated exposure control for dose reduction was used. FINDINGS: Heart normal size without pericardial effusion. Lung bases clear without pleural effusion. A few scattered subcentimeter hypodensities in the liver too small for accurate CT characterization, likely tiny cysts. Portal venous system is patent. No biliary ductal dilatation. Dominant diverticulum of the second portion of the duodenum projecting into the pancreatic head regio n. Gallbladder, adrenal glands, kidneys, spleen, and pancreas appear within normal limits. There may be diffuse gastric fold thickening especially of the fundus and body. No dilated small bowel, free fluid, or free air. No significant stool burden. No pericolonic inflammatory change. Possible mild fold thickening of multiple mid to lower abdominal small bowel loops, for example, refe r to axial image 59. Small amount of liquid stool in the right side of the colon. Bladder partially distended. Some trabecular thickening within the left hemipelvis may reflect subtle changes of Paget's disease. Moderate multilevel degenerative disc disease. Trace grade 1 retrolisthesis at L2-L3 and L3-L4. At le ast mild degenerative changes in both hips. There is a 3.5 x 1.2 x 2.6 cm fluid collection within the medial proximal aspect of the pectineus mus anson with some associated calcific or ossific densities, refer to axial image 77 and coronal image 39. Findings not seen back in 2017. IMPRESSION: 1. THERE MAY BE MILD FOLD THICKENING OF THE GASTRIC FUNDUS AND BODY AND SOME FOLD THICKENING OF SMALL BOWEL LOOPS IN THE MID AND LOWER ABDOMEN. CORRELATE FOR POSSIBLE GASTROENTERITIS. 2. TRABECULAR THICKENING INVOLVING THE LEFT HEMIPELVIS MAY REFLECT SUBTLE CHANGES OF PAGET'S DISEASE. 3. A 3.5 X 2.6 CM FLUID COLLECTION WITHIN THE MEDIAL PROXIMAL ASPECT OF THE PECTINEUS MUSCLE AT THE R IGHT HIP WITH SOME ASSOCIATED CALCIFICATION. FINDINGS COULD REPRESENT SEQUELA OF MUSCLE STRAIN/AVULSI ON INJURY WITH CHRONIC HEMATOMA. CORRELATE FOR ANY PAIN OR HISTORY OF INJURY AT THIS SITE. MRI IF CLI NICALLY INDICATED. 4. MODERATE DEGENERATIVE CHANGES IN THE LUMBAR SPINE.
[2019-03-16] MEDS ORDERED: MAG HYDROX/AL HYDROX/SIMETH 30 ML, HYOSCYAMINE ELIXIR 10 ML, CIMETIDINE HCL 300 MG, LID... PO STA ×4 (23:14)
[2019-03-16 23:24] LABS: Appearance,Urine Clear (Clear); Bilirubin,Urine Negative (Negative); Blood,Urine Negative (Negative); Color,Urine Yellow; Glucose,Urine (UA) Negative (Negative); Ketones,Urine 1+ (Negative); Leukocyte Esterase,Urine Negative (Negative); Mucus,Urine Rare /hpf; Nitrite,Urine Negative (Negative); Protein,Urine 2+ (Negative); RBC,Urine 1 /hpf (0-5); Urobilinogen,Urine <2.0 mg/dL (<2.0); WBC,Urine 2 /hpf (0-5)
[2019-03-16 23:25] LABS: Specific Gravity,Urine >1.050 (1.001-1.035)
[2019-03-17 00:35] VITALS: BP 151/94; PULSE 73; RESP 16; TEMP 98.1
== END 2019-03-17 00:29 | disposition home or self-care (01) ==
LOC: EC 19:19
DX: R10.9 Unspecified abdominal pain (principal); R11.2 Nausea with vomiting, unspecified; R19.7 Diarrhea, unspecified; G89.29 Other chronic pain; R10.813 Right lower quadrant abdominal tenderness; R10.815 Periumbilic abdominal tenderness; R00.0 Tachycardia, unspecified; R03.0 Elevated blood-pressure reading, without diagnosis of hypertension; F17.200 Nicotine dependence, unspecified, uncomplicated; Z79.899 Other long term (current) drug therapy; Z88.5 Allergy status to narcotic agent; Z88.6 Allergy status to analgesic agent; Z91.018 Allergy to other foods
CPT/HCPCS: 36415; 80053; 82150; 83690; 85025; 81001; 74177; 99284; 96374; 96375 ×2; 96361; J2270; J2405; J1885; Q9967

== ENCOUNTER 2020-10-09 13:14 | Emergency (ER) | payer MEDICARE ==
[2020-10-09 13:22] VITALS: RESP 18; TEMP 98.4
[2020-10-09] MEDS ORDERED: SODIUM CHLORIDE 0.9% 1,000 ML IV STA (13:37)
[2020-10-09] MEDS ORDERED: LORazepam 2 MG/ML INJ IV STA (13:38)
--- NOTE | 2020-10-09 13:45 | ED ---
General Adult HPI - General Source: patient, EMS, RN notes reviewed, old records reviewed Mode of arrival: EMS Limitations: no limitations <Ez Ying - Last Filed: 10/09/20 14:44> <Sumit Arenas - Last Filed: 10/09/20 15:34> - General Chief complaint: Syncope Stated complaint: Syncope Time Seen by Provider: 10/09/20 13:15 - History of Present Illness Initial comments: This is a 59-year-old male presents emergency Department complaining that he is syncopal episode. Patient states he is a drinker he stopped 3 or 4 days ago because he was put on probation. Patient states he was saying goodbye to his daughter because she was flying out of town and he states that he doesn't remember anything until he woke up on the ground. Patient denies hitting his head or neck. Patient states he has no headache no neck pain no numbness weakness. Patient denies any extremity injury. Patient states she has no pain anywhere. Patient states this is atypical for him to have passed out. Patient denies chest pain or palpitations. Patient denies any difficulty breathing shortness of breath. Patient denies any recent fever chills or cough. Patient denies abdominal pain patient denies nausea vomiting diarrhea (Ez Ying) - Related Data Home Medications Medication Instructions Recorded Confirmed Roeoa-E-Uxmiqacfasoaf [Beano] 300 unit PO Q8H PRN 03/16/19 03/16/19 Calcium Carb/Magnesium Hydrox 2 tab PO Q8H PRN 03/16/19 03/16/19 [Rolaids Chewable Tablet] Omeprazole 20 mg PO DAILY 03/16/19 03/16/19 Ondansetron HCl [Zofran] 8 mg PO Q8H PRN 03/16/19 03/16/19 Simethicone [Gas-X] 125 mg PO Q8H PRN 03/16/19 03/16/19 Allergies Allergy/AdvReac Type Severity Reaction Status Date / Time codeine phosphate AdvReac Nausea Verified 03/16/19 19:41 [From Tylenol-Codeine #3] brazil nuts Allergy Unknown Uncoded 04/12/17 14:20 Review of Systems ROS Other: All systems not noted in ROS Statement are negative. <Ez Ying - Last Filed: 10/09/20 14:44> ROS Other: All systems not noted in ROS Statement are negative. <DeepaSumit Beatriz - Last Filed: 10/09/20 15:34> ROS Statement: Those systems with pertinent positive or pertinent negative responses have been documented in the HPI. Past Medical History Additional Past Medical History / Comment(s): chronic abd pain, pancreatitis, celiac, celiac arterial compression syndrome, History of Any Multi-Drug Resistant Organisms: None Reported Past Surgical History: Hernia Repair Additional Past Surgical History / Comment(s): colonoscopy, endoscopy, Past Psychological History: No Psychological Hx Reported Smoking Status: Current every day smoker Past Alcohol Use History: Abuse Past Drug Use History: Marijuana <Ez Ying - Last Filed: 10/09/20 14:44> General Exam Limitations: no limitations <Ez Ying - Last Filed: 10/09/20 14:44> - General Exam Comments Initial Comments: GENERAL: Patient is well-developed and well-nourished. Patient is nontoxic and well- hydrated and is in mild distress. ENT: Neck is soft and supple. No significant lymphadenopathy is noted. Oropharynx is clear. Moist mucous membranes. Neck has full range of motion without elicit ing any pain. EYES: The sclera were anicteric and conjunctiva were pink and moist. Extraocular mo vements were intact and pupils were equal round and reactive to light. Eyelids were unremarkable. PULMONARY: Unlabored respirations. Good breath sounds bilaterally. No audible rales rhonchi or wheezing was noted. CARDIOVASCULAR: There is a regular rate and rhythm without any murmurs gallops or rubs. ABDOMEN: Soft and nontender with normal bowel sounds. SKIN: Skin is clear with no lesions or rashes and otherwise unremarkable. NEUROLOGIC: Patient is alert and oriented x3. Cranial nerves II through XII are grossly intact. Motor and sensory are also intact. Normal speech, volume and content. Symmetrical smile. MUSCULOSKELETAL: Normal extremities with adequate strength and full range of motion. LYMPHATICS: No significant lymphadenopathy is noted PSYCHIATRIC: Normal psychiatric evaluation. (Ez Ying) Course Vital Signs 10/09/20 10/09/20 10/09/20 13:16 13:54 14:47 Temperature 98.4 F Pulse Rate 95 80 Pulse Rate [ 89 Pulse Oximetery ] Respiratory 18 18 Rate Blood Pressure 184/91 176/114 Blood Pressure 157/126 [Sitting] Blood Pressure 152/111 [Standing] Blood Pressure 174/113 [Supine] O2 Sat by Pulse 99 99 Oximetry Medical Decision Making - Lab Data Result diagrams: 10/09/20 14:02 <Ez Ying - Last Filed: 10/09/20 14:44> - Lab Data Result diagrams: 10/09/20 14:02 10/09/20 14:02 <Sumit Arenas - Last Filed: 10/09/20 15:34> - Medical Decision Making EKG shows normal sinus rhythm at 92 bpm [place] interval 230 QRS is 88 QT interval 392 QTC is 44. Patient's EKG shows no ST segment elevation or depression. Dr. Arenas will be taking over the care of this patient at 3 PM (Ez Ying) Patient care sign out to me by previous shift physician Dr. Ying. Briefly, patient is 59-year-old male who expresses syncopal episode today. Patient is alcoholic and is trying to detoxify on his own. Initial evaluation was performed by Dr. Ying. Labs x-ray and EKG was ordered by Dr. Ying interpreted all to be within acceptable limits. Patient did have mild anion gap acidosis. Orthostatics were normal. Plan at sign out was to follow up with blood pressure. He is hungry hypertensive in the emergency department. Dr. Ying ordered hydralazine for administration. Plan was to follow-up with subsequent blood pressures and to reevaluate patient to determine final disposition. Patient is reevaluated at bedside after administration of hydralazine with improvement of blood pressure. Patient is well-appearing at bedside however considering his comorbidities and discussion of syncopal episode is recommended to be admitted to the hospital for syncope workup. Patient declined. Pending is because he does not like hospitals. It was discussed with him that he could have had a cardiac event causing him to syncopize. Discussed with him that his syncope could be a sign of something serious and if not worked up can cause serious comorbidities and even mortality. Patient understands the risks of signing out AGAINST MEDICAL ADVICE. Patient told to return to emergency department at any time especially if experiences another episode. Risks, Benefits, and Treatment alternatives were discussed in detail with the patient. The patient is alert and oriented X 3 and has the capacity to make an informed decision. The risks of increased morbidity including the possibly of were explained to and understood by the patient who is choosing to leave against medical advice. The patient is encouraged to return any time should they want further treatment and diagnostic investigation. (Sumit Arenas) - Lab Data Lab Results 10/09/20 10/09/20 10/09/20 Range/Units 14:02 14:02 14:02 WBC 13.5 H (3.8-10.6) k/uL RBC 4.19 L (4.30-5.90) m/uL Hgb 13.1 (13.0-17.5) gm/dL Hct 41.0 (39.0-53.0) % MCV 98.0 (80.0-100.0) fL MCH 31.2 (25.0-35.0) pg MCHC 31.9 (31.0-37.0) g/dL RDW 15.1 (11.5-15.5) % Plt Count 245 (150-450) k/uL MPV 8.9 Neutrophils % 93 % Lymphocytes % 3 % Monocytes % 3 % Eosinophils % 0 % Basophils % 0 % Neutrophils # 12.7 H (1.3-7.7) k/uL Lymphocytes # 0.4 L (1.0-4.8) k/uL Monocytes # 0.4 (0-1.0) k/uL Eosinophils # 0.0 (0-0.7) k/uL Basophils # 0.0 (0-0.2) k/uL PT 9.8 (9.0-12.0) sec INR 0.9 (<1.2) APTT 24.3 (22.0-30.0) sec Sodium 136 L (137-145) mmol/L Potassium 4.0 (3.5-5.1) mmol/L Chloride 105 (98-107) mmol/L Carbon Dioxide 16 L (22-30) mmol/L Anion Gap 15 mmol/L BUN 13 (9-20) mg/dL Creatinine 0.86 (0.66-1.25) mg/dL Est GFR (CKD-EPI)AfAm >90 (>60 ml/min/1.73 sqM) Est GFR (CKD-EPI)NonAf >90 (>60 ml/min/1.73 sqM) Glucose 184 H (74-99) mg/dL Calcium 10.0 (8.4-10.2) mg/dL Magnesium 2.1 (1.6-2.3) mg/dL Total Bilirubin 1.1 (0.2-1.3) mg/dL AST 117 H (17-59) U/L ALT 75 H (4-49) U/L Alkaline Phosphatase 94 (38-126) U/L Troponin I (0.000-0.034) ng/mL Total Protein 8.9 H (6.3-8.2) g/dL Albumin 5.0 (3.5-5.0) g/dL Serum Alcohol <10 mg/dL 10/09/20 Range/Units 14:02 WBC (3.8-10.6) k/uL RBC (4.30-5.90) m/uL Hgb (13.0-17.5) gm/dL Hct (39.0-53.0) % MCV (80.0-100.0) fL MCH (25.0-35.0) pg MCHC (31.0-37.0) g/dL RDW (11.5-15.5) % Plt Count (150-450) k/uL MPV Neutrophils % % Lymphocytes % % Monocytes % % Eosinophils % % Basophils % % Neutrophils # (1.3-7.7) k/uL Lymphocytes # (1.0-4.8) k/uL Monocytes # (0-1.0) k/uL Eosinophils # (0-0.7) k/uL Basophils # (0-0.2) k/uL PT (9.0-12.0) sec INR (<1.2) APTT (22.0-30.0) sec Sodium (137-145) mmol/L Potassium (3.5-5.1) mmol/L Chloride (98-107) mmol/L Carbon Dioxide (22-30) mmol/L Anion Gap mmol/L BUN (9-20) mg/dL Creatinine (0.66-1.25) mg/dL Est GFR (CKD-EPI)AfAm (>60 ml/min/1.73 sqM) Est GFR (CKD-EPI)NonAf (>60 ml/min/1.73 sqM) Glucose (74-99) mg/dL Calcium (8.4-10.2) mg/dL Magnesium (1.6-2.3) mg/dL Total Bilirubin (0.2-1.3) mg/dL AST (17-59) U/L ALT (4-49) U/L Alkaline Phosphatase (38-126) U/L Troponin I <0.012 (0.000-0.034) ng/mL Total Protein (6.3-8.2) g/dL Albumin (3.5-5.0) g/dL Serum Alcohol mg/dL Disposition <Ez Ying - Last Filed: 10/09/20 14:44> Is patient prescribed a controlled substance at d/c from ED?: No Time of Disposition: 15:34 <Sumit Arenas - Last Filed: 10/09/20 15:34> Clinical Impression: Syncope Disposition: Left Against Medical Advice Condition: Fair Instructions (If sedation given, give patient instructions): Syncope (ED) Referrals: Princess Mcgrath DO [Primary Care Provider] - 1-2 days
[2020-10-09] MEDS ORDERED: SODIUM CHLORIDE 0.9% 1,000 ML with MVI, ADULT NO.4 WITH VIT K 10 ML, THIAMINE 100 MG, F... IV ONE ×4 (14:00)
[2020-10-09 14:20] LABS: Basophils % (A) 0 %; Eosinophils % (A) 0 %; HGB 13.1 gm/dL (13.0-17.5); Lymphocytes # (A) 0.4 k/uL (1.0-4.8); Lymphocytes % (A) 3 %; MCH 31.2 pg (25.0-35.0); MCHC 31.9 g/dL (31.0-37.0); Mean Platelet Volume 8.9; Monocytes # (A) 0.4 k/uL (0-1.0); Monocytes % (A) 3 %; Neutrophils # (A) 12.7 k/uL (1.3-7.7); Neutrophils % (A) 93 %; Platelet Count 245 k/uL (150-450); RBC 4.19 m/uL (4.30-5.90); RDW 15.1 % (11.5-15.5); WBC 13.5 k/uL (3.8-10.6)
[2020-10-09] MEDS ORDERED: hydrALAZINE HCL 20 MG/ML 1 ML VIAL IVP STA (14:35)
[2020-10-09 14:36] LABS: AST 117 U/L (17-59); African American GFR (CKD) >90 (>60 ml/min/1.73 sqM); Alcohol <10 mg/dL; Alkaline Phosphatase 94 U/L (38-126); Anion Gap 15 mmol/L; Blood Urea Nitrogen 13 mg/dL (9-20); Carbon Dioxide 16 mmol/L (22-30); Chloride 105 mmol/L (98-107); Glucose 184 mg/dL (74-99); Magnesium 2.1 mg/dL (1.6-2.3); Non-African American GFR(CKD) >90 (>60 ml/min/1.73 sqM); Sodium 136 mmol/L (137-145); Total Bilirubin 1.1 mg/dL (0.2-1.3); Total Protein 8.9 g/dL (6.3-8.2)
[2020-10-09 14:38] LABS: INR 0.9 (<1.2); Partial Thromboplastin Time 24.3 sec (22.0-30.0); Prothrombin Time 9.8 sec (9.0-12.0)
--- NOTE | 2020-10-09 14:38 | XR ---
EXAMINATION TYPE: XR chest 2V DATE OF EXAM: 10/09/2020 COMPARISON: NONE TECHNIQUE: PA and lateral views submitted. HISTORY: Chest Pain FINDINGS: The lungs are clear and there is no pneumothorax, pleural effusion, or focal pneumonia. Hyperinflat ion suggests COPD. Biapical pleural thickening. No overt failure. Heart size normal. Degenerative ivan nge of the spine. IMPRESSION: 1. No acute process.
[2020-10-09 14:43] LABS: ALT 75 U/L (4-49)
[2020-10-09 14:48] VITALS: PULSE 80
[2020-10-09 15:33] VITALS: BP 151/89
== END 2020-10-09 15:48 | disposition left against medical advice (07) ==
LOC: EC 13:14
DX: R55 Syncope and collapse (principal); Z53.29 Procedure and treatment not carried out because of patient's decision for other reasons; F17.200 Nicotine dependence, unspecified, uncomplicated; Z79.899 Other long term (current) drug therapy; Z88.5 Allergy status to narcotic agent; Z88.6 Allergy status to analgesic agent; Z91.018 Allergy to other foods
CPT/HCPCS: 36415; 93005; 80053; 83735; 84484; 85025; 85610; 85730; 71046; 99285; 96365; 96375 ×2; 96361; G0480; J2060; J0360; J3411; 80320

== ENCOUNTER 2020-10-11 22:10 | Inpatient (IN) | payer MEDICARE ==
[~2020-10-11 22:10] MED LIST: THIAMINE 100 MG TAB PO SCH
[2020-10-11] MEDS ORDERED: LORazepam 2 MG/ML INJ IV STA (22:40)
[2020-10-11] MEDS ORDERED: SODIUM CHLORIDE 0.9% 1,000 ML IV STA (22:50)
[2020-10-11] MEDS ORDERED: THIAMINE 100 MG/ML 2 ML VIAL IM STA (22:51)
[2020-10-11] MEDS ORDERED: LORazepam 2 MG/ML INJ IV PRN (22:51)
--- NOTE | 2020-10-11 22:51 | ED ---
General Adult HPI - General Chief complaint: Psychiatric Symptoms Stated complaint: Anxiety Time Seen by Provider: 10/11/20 22:40 Source: patient Mode of arrival: wheelchair - History of Present Illness Initial comments: Reese is a 59-year-old male who returns to the ER today for evaluation of hallucinations. Patient was seen and evaluated 2 days prior for alcohol withdrawal. Patient reported that time that he had a had alcohol in 2-3 days due to being put on probation. Patient reports today that he has continued to abstain from alcoholafter multiple years history of heavy daily use. further history is limited by the patient's current mental status. - Related Data Home Medications Medication Instructions Recorded Confirmed Jweak-V-Kxarigjcdslfa [Beano] 300 unit PO Q8H PRN 03/16/19 03/16/19 Calcium Carb/Magnesium Hydrox 2 tab PO Q8H PRN 03/16/19 03/16/19 [Rolaids Chewable Tablet] Omeprazole 20 mg PO DAILY 03/16/19 03/16/19 Ondansetron HCl [Zofran] 8 mg PO Q8H PRN 03/16/19 03/16/19 Simethicone [Gas-X] 125 mg PO Q8H PRN 03/16/19 03/16/19 Allergies Allergy/AdvReac Type Severity Reaction Status Date / Time codeine phosphate AdvReac Nausea Verified 10/11/20 22:29 [From Tylenol-Codeine #3] brazil nuts Allergy Unknown Uncoded 10/11/20 22:29 Review of Systems ROS Statement: Those systems with pertinent positive or pertinent negative responses have been documented in the HPI. ROS Other: All systems not noted in ROS Statement are negative. Past Medical History Additional Past Medical History / Comment(s): chronic abd pain, pancreatitis, celiac, celiac arterial compression syndrome, anxiety, ETOH History of Any Multi-Drug Resistant Organisms: None Reported Past Surgical History: Hernia Repair Additional Past Surgical History / Comment(s): colonoscopy, endoscopy, Past Psychological History: No Psychological Hx Reported Smoking Status: Current every day smoker Past Alcohol Use History: Abuse Past Drug Use History: Marijuana General Exam - General Exam Comments Initial Comments: Physical Exam GENERAL: thin gentleman who appears very anxious and tremulous HENT: Normocephalic, Atraumatic. EYES: PERRL, EOMI PULMONARY: Unlabored respirations. CARDIOVASCULAR: tachycardic regular ABDOMEN: Non-distended SKIN: No rashes or bruising : Deferred NEUROLOGIC: oriented to self, able to identify that he is at a hospital, able to state the year MUSCULOSKELETAL: Moving all extremities with no apparent injury PSYCHIATRIC: agitated,distracted by internal stimuli, appears to be hallucinating Course Vital Signs 10/11/20 10/11/20 10/11/20 22:13 22:43 23:34 Temperature 98 F Pulse Rate 100 105 H 103 H Respiratory 24 18 18 Rate Blood Pressure 171/116 163/89 153/99 O2 Sat by Pulse 97 100 100 Oximetry 10/12/20 00:26 Temperature Pulse Rate 106 H Respiratory 18 Rate Blood Pressure 144/89 O2 Sat by Pulse 98 Oximetry EKG Findings - EKG Comments: EKG Findings:: EKG was obtained due to tachycardia, EKG obtained at 20-25 rate is 101 and rhythm is sinus tach normal axis, normal intervals, IN 114 QRS 80 QTc [address] elevations or depressions no evidence of acute ischemia or infarction. Some movement artifact is noted. Medical Decision Making - Medical Decision Making the patient was seen and evaluated history is obtained from the patient and review of medical record History and physical exam are concerning for acute alcohol withdrawal with delirium tremens Patient was placed on [facility] protocol given Ativan Labs are relatively unremarkable AST is elevated with alcohol abuse Receive multiple doses of Ativan and remained somewhat agitated, he then received a dose of Geodon She'll be admitted for DTs on the [facility] protocol - Lab Data Result diagrams: 10/11/20 22:58 10/11/20 22:58 Lab Results 10/11/20 10/11/20 10/11/20 Range/Units 22:58 22:58 22:58 WBC 14.8 H (3.8-10.6) k/uL RBC 3.97 L (4.30-5.90) m/uL Hgb 13.1 (13.0-17.5) gm/dL Hct 38.7 L (39.0-53.0) % MCV 97.4 (80.0-100.0) fL MCH 33.0 (25.0-35.0) pg MCHC 33.8 (31.0-37.0) g/dL RDW 14.3 (11.5-15.5) % Plt Count 213 (150-450) k/uL MPV 8.6 Neutrophils % 86 % Lymphocytes % 10 % Monocytes % 3 % Eosinophils % 0 % Basophils % 0 % Neutrophils # 12.7 H (1.3-7.7) k/uL Lymphocytes # 1.5 (1.0-4.8) k/uL Monocytes # 0.4 (0-1.0) k/uL Eosinophils # 0.0 (0-0.7) k/uL Basophils # 0.1 (0-0.2) k/uL PT 10.2 (9.0-12.0) sec INR 1.0 (<1.2) Sodium 134 L (137-145) mmol/L Potassium 4.0 (3.5-5.1) mmol/L Chloride 103 (98-107) mmol/L Carbon Dioxide 18 L (22-30) mmol/L Anion Gap 13 mmol/L BUN 22 H (9-20) mg/dL Creatinine 0.85 (0.66-1.25) mg/dL Est GFR (CKD-EPI)AfAm >90 (>60 ml/min/1.73 sqM) Est GFR (CKD-EPI)NonAf >90 (>60 ml/min/1.73 sqM) Glucose 109 H (74-99) mg/dL Calcium 9.8 (8.4-10.2) mg/dL Magnesium 1.6 (1.6-2.3) mg/dL Total Bilirubin 1.5 H (0.2-1.3) mg/dL AST 203 H (17-59) U/L ALT 96 H (4-49) U/L Alkaline Phosphatase 71 (38-126) U/L Total Protein 8.1 (6.3-8.2) g/dL Albumin 4.6 (3.5-5.0) g/dL Lipase 69 (23-300) U/L Salicylates <1.0 mg/dL Acetaminophen <10.0 ug/mL Serum Alcohol <10 mg/dL Disposition Clinical Impression: Delirium, Alcohol withdrawal delirium Disposition: ADMITTED IP TO THIS [facility] Condition: Serious Is patient prescribed a controlled substance at d/c from ED?: No
[2020-10-11] MEDS ORDERED: cloNIDine 0.1 MG/24HR PATCH TRANSDERM SCH (23:00)
[2020-10-11] MEDS: LORazepam 2 MG/ML INJ IV PRN (23:24)
[2020-10-11 23:43] LABS: Basophils # (A) 0.1 k/uL (0-0.2); Basophils % (A) 0 %; Eosinophils % (A) 0 %; HCT 38.7 % (39.0-53.0); HGB 13.1 gm/dL (13.0-17.5); Lymphocytes # (A) 1.5 k/uL (1.0-4.8); Lymphocytes % (A) 10 %; MCHC 33.8 g/dL (31.0-37.0); MCV 97.4 fL (80.0-100.0); Mean Platelet Volume 8.6; Monocytes # (A) 0.4 k/uL (0-1.0); Monocytes % (A) 3 %; Neutrophils # (A) 12.7 k/uL (1.3-7.7); Neutrophils % (A) 86 %; Platelet Count 213 k/uL (150-450); RBC 3.97 m/uL (4.30-5.90); RDW 14.3 % (11.5-15.5); WBC 14.8 k/uL (3.8-10.6)
[2020-10-11 23:53] LABS: Prothrombin Time 10.2 sec (9.0-12.0)
[2020-10-12 00:03] LABS: ALT 96 U/L (4-49); AST 203 U/L (17-59); Acetaminophen <10.0 ug/mL; African American GFR (CKD) >90 (>60 ml/min/1.73 sqM); Albumin 4.6 g/dL (3.5-5.0); Alcohol <10 mg/dL; Alkaline Phosphatase 71 U/L (38-126); Anion Gap 13 mmol/L; Blood Urea Nitrogen 22 mg/dL (9-20); Calcium 9.8 mg/dL (8.4-10.2); Carbon Dioxide 18 mmol/L (22-30); Chloride 103 mmol/L (98-107); Glucose 109 mg/dL (74-99); Lipase 69 U/L (23-300); Magnesium 1.6 mg/dL (1.6-2.3); Non-African American GFR(CKD) >90 (>60 ml/min/1.73 sqM); Salicylate <1.0 mg/dL; Sodium 134 mmol/L (137-145); Total Bilirubin 1.5 mg/dL (0.2-1.3); Total Protein 8.1 g/dL (6.3-8.2)
[2020-10-12] MEDS ORDERED: NALOXONE 0.4 MG/ML 1 ML VIAL IV PRN (00:11)
[2020-10-12] MEDS ORDERED: LORazepam 2 MG/ML INJ IV STA (00:13)
[2020-10-12] MEDS: LORazepam 2 MG/ML INJ IV PRN ×2 (00:56→15:28)
[2020-10-12] MEDS ORDERED: ZIPRASIDONE 20 MG VIAL IM STA (01:00)
[2020-10-12 07:39] LABS: Glucose,Whole Blood 79 mg/dL (75-99)
[2020-10-12] MEDS: THIAMINE 100 MG TAB PO SCH ×2 (07:55→15:28)
[2020-10-12] MEDS: MULTIVITAMINS, THERA 1 EACH TAB PO SCH (07:55)
[2020-10-12 11:00] LABS: Appearance,Urine Clear (Clear); Bilirubin,Urine Negative (Negative); Blood,Urine Negative (Negative); Color,Urine Yellow; Glucose,Urine (UA) Negative (Negative); Ketones,Urine Negative (Negative); Leukocyte Esterase,Urine Negative (Negative); Nitrite,Urine Negative (Negative); Protein,Urine Trace (Negative); Specific Gravity,Urine 1.018 (1.001-1.035)
[2020-10-12 11:13] LABS: Amphetamine Screen,Urine Not Detected (NotDetected); Barbiturate Screen,Urine Not Detected (NotDetected); Benzodiazepines Screen,Urine Detected (NotDetected); Cocaine Screen,Urine Not Detected (NotDetected); Methadone Screen, Urine Not Detected (NotDetected); Opiate Screen,Urine Not Detected (NotDetected); Oxycodone Screen, Urine Not Detected (NotDetected); Phencyclidine Screen,Urine Not Detected (NotDetected); Tricyclic Antidepressant,Urine Not Detected (NotDetected); Urn Cannabinoid Scrn Detected (NotDetected)
[2020-10-12] MEDS ORDERED: chlordiazePOXIDE 25 MG CAP PO SCH (11:45)
[2020-10-12 12:15] LABS: Glucose,Whole Blood 92 mg/dL (75-99)
--- NOTE | 2020-10-12 12:37 | P.HPIM ---
History of Present Illness Patient is a pleasant 59-year-old the female came in the for alcohol withdrawal. Patient at last alcohol was 2 days ago. Patient is with willing to quit alcohol does smoke 1 pack of cigarettes per day patient the does use marijuana but he wants to quit that one as well. Patient appears to have hallucinations. Patient the states he sees Ghosts in his house and he attributes his alcohol use to seeing those ghosts and that makes him anxious. Patient did have these hallucinations in the last night in the hospital. Patient is having some withdraws did receive Ativan today. Patient admits to drinking 2 pints of alcohol hard liquor every day. Review of Systems REVIEW OF SYSTEMS: CONSTITUTIONAL: No fever, no malaise, no fatigue. HEENT: No recent visual problems or hearing problems. Denied any sore throat. CARDIOVASCULAR: No chest pain, orthopnea, PND, no palpitations, no syncope. PULMONARY: No shortness of breath, no cough, no hemoptysis. GASTROINTESTINAL: No diarrhea, no nausea, no vomiting, no abdominal pain. NEUROLOGICAL: No headaches, no weakness, no numbness. HEMATOLOGICAL: Denies any bleeding or petechiae. GENITOURINARY: Denies any burning micturition, frequency, or urgency. MUSCULOSKELETAL/RHEUMATOLOGICAL: Denies any joint pain, swelling, or any muscle pain. ENDOCRINE: Denies any polyuria or polydipsia. The rest of the 14-point review of systems is negative. Past Medical History Additional Past Medical History / Comment(s): chronic abd pain, pancreatitis, celiac, celiac arterial compression syndrome, anxiety, ETOH History of Any Multi-Drug Resistant Organisms: None Reported Past Surgical History: Hernia Repair Additional Past Surgical History / Comment(s): colonoscopy, endoscopy, Past Psychological History: No Psychological Hx Reported Smoking Status: Current every day smoker Past Alcohol Use History: Abuse Past Drug Use History: Marijuana Medications and Allergies Home Medications Medication Instructions Recorded Confirmed Type Thhks-S-Bmapgehxybrwa [Beano] 300 unit PO Q8H PRN 03/16/19 10/12/20 History Calcium Carb/Magnesium Hydrox 2 tab PO Q8H PRN 03/16/19 10/12/20 History [Rolaids Chewable Tablet] Omeprazole 20 mg PO DAILY 03/16/19 10/12/20 History Ondansetron HCl [Zofran] 8 mg PO Q8H PRN 03/16/19 10/12/20 History Gas Relief 180mg 180 mg PO QID PRN 10/12/20 10/12/20 History Ketorolac [Toradol] 10 mg PO QID PRN 10/12/20 10/12/20 History predniSONE See Taper PO DIRECTED 10/12/20 10/12/20 History Allergies Allergy/AdvReac Type Severity Reaction Status Date / Time codeine phosphate AdvReac Nausea Verified 10/12/20 07:54 [From Tylenol-Codeine #3] brazil nuts Allergy Unknown Uncoded 10/11/20 22:29 Physical Exam Vitals: Vital Signs Temp Pulse Pulse Resp BP BP Pulse Ox 10/12/20 08:00 96 16 10/12/20 07:00 97.3 F L 96 16 157/83 98 10/12/20 02:05 97.7 F 88 32 H 144/81 96 10/12/20 00:26 106 H 18 144/89 98 10/11/20 23:34 103 H 18 153/99 100 10/11/20 22:43 105 H 18 163/89 100 10/11/20 22:13 98 F 100 24 171/116 97 Intake and Output 10/11/20 10/12/20 10/12/20 22:59 06:59 14:59 Other: Voiding Method Urinal Urinal Diaper Diaper # Voids 1 Weight 90.718 kg 90.718 kg PHYSICAL EXAMINATION: GENERAL: The patient is alert and oriented x3, not in any acute distress. Well developed, well nourished. HEENT: Pupils are round and equally reacting to light. EOMI. No scleral icterus. No conjunctival pallor. Normocephalic, atraumatic. No pharyngeal erythema. No thyromegaly. CARDIOVASCULAR: S1 and S2 present. No murmurs, rubs, or gallops. PULMONARY: Chest is clear to auscultation, no wheezing or crackles. ABDOMEN: Soft, nontender, nondistended, normoactive bowel sounds. No palpable organomegaly. MUSCULOSKELETAL: No joint swelling or deformity. EXTREMITIES: No cyanosis, clubbing, or pedal edema. NEUROLOGICAL: Gross neurological examination did not reveal any focal deficits. SKIN: No rashes. Results CBC & Chem 7: 10/11/20 22:58 10/11/20 22:58 Labs: Abnormal Lab Results - Last 24 Hours (Table) 10/11/20 10/11/20 10/12/20 Range/Units 22:58 22:58 10:15 WBC 14.8 H (3.8-10.6) k/uL RBC 3.97 L (4.30-5.90) m/uL Hct 38.7 L (39.0-53.0) % Neutrophils # 12.7 H (1.3-7.7) k/uL Sodium 134 L (137-145) mmol/L Carbon Dioxide 18 L (22-30) mmol/L BUN 22 H (9-20) mg/dL Glucose 109 H (74-99) mg/dL Total Bilirubin 1.5 H (0.2-1.3) mg/dL AST 203 H (17-59) U/L ALT 96 H (4-49) U/L Urine Protein Trace H (Negative) U Benzodiazepines Scrn Detected H (NotDetected) U Marijuana (THC) Screen Detected H (NotDetected) Assessment and Plan Plan: -Alcohol withdrawal and continue with Ativan withdrawal precautions continue with thiamine supplementation patient was started on IV fluids will also add Librium. -Hallucinations not sure whether patient had schizophrenia these hallucinations are related to his chronic alcoholism. Psychiatry was consulted -Nicotine abuse: Counseling was provided -Gastroesophageal reflux disease -Alcohol abuse with possible alcoholic gastritis -GI prophylaxis with Pepcid DVT prophylaxis with Lovenox.
[2020-10-12] MEDS ORDERED: QUEtiapine 25 MG TAB PO STA (14:00)
[2020-10-12] MEDS ORDERED: QUEtiapine 25 MG TAB PO PRN (14:00)
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
[2020-10-12] MEDS: SODIUM CHLORIDE 0.9% 1,000 ML IV SCH ×2 (15:28→21:24)
[2020-10-12] MEDS: MAGNESIUM SULFATE-D5W PMX 1 GM in DEXTROSE/WATER 1 100ML.BAG IVPB SCH ×2 (15:28→16:27)
[2020-10-12] MEDS: chlordiazePOXIDE 25 MG CAP PO SCH ×2 (15:28→21:24)
[2020-10-12 16:59] LABS: Glucose,Whole Blood 103 mg/dL (75-99)
[2020-10-12 20:50] LABS: Glucose,Whole Blood 93 mg/dL (75-99)
[2020-10-12] MEDS ORDERED: QUEtiapine 25 MG TAB PO SCH (21:00)
[2020-10-12] MEDS: FAMOTIDINE 20 MG TAB PO SCH (21:24)
[2020-10-13] MEDS: LORazepam 2 MG/ML INJ IV PRN (00:28)
[2020-10-13 07:15] LABS: Glucose,Whole Blood 113 mg/dL (75-99)
[2020-10-13] MEDS: THIAMINE 100 MG TAB PO SCH (08:08)
[2020-10-13] MEDS: FAMOTIDINE 20 MG TAB PO SCH (08:09)
[2020-10-13] MEDS: SODIUM CHLORIDE 0.9% 1,000 ML IV SCH ×2 (08:09→11:22)
[2020-10-13] MEDS: MULTIVITAMINS, THERA 1 EACH TAB PO SCH (08:09)
[2020-10-13] MEDS: chlordiazePOXIDE 25 MG CAP PO SCH ×2 (08:09→13:38)
[2020-10-13 08:14] LABS: HCT 36.8 % (39.0-53.0); MCH 32.7 pg (25.0-35.0); MCHC 32.7 g/dL (31.0-37.0); MCV 99.9 fL (80.0-100.0); Mean Platelet Volume 8.1; Platelet Count 240 k/uL (150-450); RBC 3.69 m/uL (4.30-5.90); RDW 14.3 % (11.5-15.5); WBC 8.9 k/uL (3.8-10.6)
[2020-10-13] MEDS ORDERED: ENOXAPARIN 40 MG/0.4 ML SYRINGE SQ SCH (09:00)
[2020-10-13] MEDS ORDERED: ACETAMINOPHEN TAB 325 MG TAB PO PRN (10:41)
[2020-10-13 11:18] LABS: Glucose,Whole Blood 93 mg/dL (75-99)
[2020-10-13 12:15] LABS: African American GFR (CKD) 106.5 (60.0-200.0); Anion Gap 12.7 mmol/L (4.00-12.00); Carbon Dioxide 16.3 mmol/L (21.6-31.8); Magnesium 1.8 mg/dL (1.5-2.4); Non-African American GFR(CKD) 91.9 (60.0-200.0); Potassium 4.2 mmol/L (3.5-5.5)
--- NOTE | 2020-10-13 12:59 | P.PN ---
Progress Note - Text Progress Note Date: 10/13/20 Interval History: Patient was seen today for psychiatric follow-up regarding his hallucinations. Patients nurse claims patient has been doing better medically and continue to go through withdrawals and only received one dose of Ativan since yesterday. Patient was seen at the bedside and was appearing to have finished his lunch. He states that he is doing mildly better today in terms of his mood and anxiety and states that he feels less tremulous in his hands. He states that he was able to sleep better last night. Patient was rather surprised when he found out that he took Seroquel last night. He states that his mood has been improving mildly and denies any depression. She claims that he has improvement in his energy today. He continues to state that he is seeing the daniels "moving up and down" and claims that this has gotten better since yesterday. He continues to speak about the "witches and ghosts" however refers to them in the past tense. At this time patient denies any suicidal or homical ideations, intent or plan. Patient denies any auditory hallucinations and denies any paranoia or delusions. Patient denies any side effects from the medications and has been compliant with meds. Mental Status Exam: General Appearance: Patient appears to be stated age is alert, more directable today and appears to be less anxious. Patient appears to have improving hygiene and grooming wearing hospital gown with fair eye contact. Behavior: Patient is calmly lying in bed without any agitated behavior. Appears to be less anxious today. Speech: Patient's speech is fluent and nonpressured. Rambles Mood/Affect: Patient reports their mood is "good", affect is congruent and an xious affect Suicidality/Homicidality: Patient denies having any suicidal or homicidal ideation intent or plan. Perceptions: Patient admits to visual disturbances/hallucinations. Denies any auditory hallucinations Though content/process: Patient was more goal oriented today. Continues to ramble at times. Spoke about witches and ghosts in the past tense. Denied any paranoia. Memory and concentration: AOX3, grossly intact for the purposes of this session. Can spell "WORLD" backwards Judgment and insight: Limited, improving mildly Assessment Psychosis unspecified, rule out secondary to alcohol withdrawal, possibly delirium tremens versus alcohol hallucinosis. Plan: -At this time patient DOES NOT meet criteria for inpatient psychiatric admission. -Would recommend the following medication changes/additions: continue with Librium to 25mg 4 times a day scheduled for alcohol withdrawal. Continue CIWA protocol with when necessary Ativan. Continue to monitor vital signs. continue with Seroquel 25 mg dose now with daily when necessary and standing 25 mg daily at bedtime dose. -glass processing worker to provide patient substance use treatment resources including AA/NA meetings in the community. glass processing worker to provide patient with access line number to call for inpatient substance rehab -Communicated plan to patient's nurse -Will continue to follow along, will likely sign off tomorrow. -Please contact with any questions.
[2020-10-13 13:17] VITALS: BP 121/62; PULSE 89; RESP 18; TEMP 99.5
--- NOTE | 2020-10-13 14:16 | P.PN ---
Subjective Progress Note Date: 10/13/20 Patient is a pleasant 59-year-old male came in the for alcohol withdrawal. Patient at last alcohol was 2 days ago. Patient is with willing to quit alcohol does smoke 1 pack of cigarettes per day patient the does use marijuana but he wants to quit that one as well. Patient appears to have hallucinations. Patient the states he sees Ghosts in his house and he attributes his alcohol use to seeing those ghosts and that makes him anxious. Patient did have these hallucinations in the last night in the hospital. Patient is having some withdraws did receive Ativan today. Patient admits to drinking 2 pints of alcohol hard liquor every day. 10/13/2020 Patient is seen and evaluated in follow-up and continues to have hallucinations stating that he is seeing "ghosts" in the room currently and at home. Patient denies any suicidal ideation or thoughts of wanting to hurt himself or others. Patient is being evaluated by psychiatry recommending continued monitoring as he continues to hallucinate with the possibility of a reevaluation tomorrow. Patient is adamant about leaving today and is very concerned with things to do at home. Patient is maintained on CIWA protocol although is not currently showing any signs of withdrawal. Patient states his last drink was 3 days ago. Discussed with the patient about treatment plan and patient is requesting to leave AGAINST MEDICAL ADVICE. Nursing staff notified that patient will need to sign the AMA form. Review of systems: Constitutional: No reports of fatigue, fever, or chills Cardiovascular: No reports of chest pain or palpitations Respiratory: No reports of shortness of breath or cough GI: No reports of nausea, vomiting, or diarrhea : No reports of dysuria or retention Neurovascular: No reports of weakness or numbness All medications have been reviewed Objective - Vital Signs Vital signs: Vital Signs Temp 98.8 F 10/13/20 08:49 Pulse 94 10/13/20 08:49 Resp 16 10/13/20 08:49 BP 138/81 10/13/20 08:49 Pulse Ox 99 10/13/20 08:49 Intake & Output 10/12/20 10/13/20 10/13/20 18:59 06:59 18:59 Other: Voiding Method Urinal Urinal Diaper # Voids 2 1 1 - Exam GENERAL: The patient is alert and oriented x3, not in any acute distress. Anxious. Well developed, well nourished. HEENT: Pupils are round and equally reacting to light. EOMI. No scleral icterus. No conjunctival pallor. Normocephalic, atraumatic. No pharyngeal erythema. No thyromegaly. CARDIOVASCULAR: S1 and S2 present. No murmurs, rubs, or gallops. PULMONARY: Chest is clear to auscultation, no wheezing or crackles. ABDOMEN: Soft, nontender, nondistended, normoactive bowel sounds. No palpable organomegaly. MUSCULOSKELETAL: No joint swelling or deformity. EXTREMITIES: No cyanosis, clubbing, or pedal edema. NEUROLOGICAL: Gross neurological examination did not reveal any focal deficits. SKIN: No rashes. - Labs CBC & Chem 7: 10/13/20 07:03 10/13/20 07:03 Labs: Abnormal Lab Results - Last 24 Hours (Table) 10/12/20 10/13/20 10/13/20 Range/Units 16:55 07:03 07:11 RBC 3.69 L (4.30-5.90) m/uL Hgb 12.0 L (13.0-17.5) gm/dL Hct 36.8 L (39.0-53.0) % POC Glucose (mg/dL) 103 H 113 H (75-99) mg/dL Assessment and Plan Assessment: -Alcohol withdrawal, currently maintained on [facility] protocol -Hallucinations not sure whether patient had schizophrenia these hallucinations are related to his chronic alcoholism. Psychiatry following recommending reevaluation in the morning. Does not meet criteria for inpatient psychiatry at this time -Nicotine abuse: Counseling was provided -Gastroesophageal reflux disease -Alcohol abuse with possible alcoholic gastritis -GI prophylaxis with Pepcid -DVT prophylaxis with Lovenox.
--- NOTE | 2020-10-13 14:21 | P.DS ---
Providers Date of admission: 10/12/20 00:11 Expected date of discharge: 10/13/20 Attending physician: Riya Cancino Consults: 10/12/20 11:33 Consult Physician Routine Consulting Provider: Hong Gamboa Consult Reason/Comments: Hallucinations Do you want consulting provider notified?: Yes Primary care physician: Princess Mcgrath [facility] Course: Final diagnosis -Alcohol withdrawal -Hallucinations -Nicotine abuse -Gastroesophageal reflux disease -Alcohol abuse with possible alcoholic gastritis -GI prophylaxis -DVT prophylaxis with Lovenox. Discharge disposition Patient is leaving AGAINST MEDICAL ADVICE. Risks versus benefits explained and discussed with the patient. Patient signed the AMA form with nursing staff. Please refer to previous dictation for further HPI. Patient currently not suicidal or having thoughts of wanting to harm himself or others. Patient Condition at Discharge: Stable Plan - Discharge Summary New Discharge Prescriptions: No Action Ondansetron HCl [Zofran] 8 mg PO Q8H PRN PRN Reason: Nausea Omeprazole 20 mg PO DAILY Calcium Carb/Magnesium Hydrox [Rolaids Chewable Tablet] 2 tab PO Q8H PRN PRN Reason: STOMACH Mwnyp-E-Stomtbelbxiaz [Beano] 300 unit PO Q8H PRN PRN Reason: GAS predniSONE See Taper PO DIRECTED Ketorolac [Toradol] 10 mg PO QID PRN PRN Reason: Pain Gas Relief 180mg 180 mg PO QID PRN PRN Reason: gas Discharge Medication List Hwtjy-A-Arwuewmmtwnuy [Beano] 300 unit PO Q8H PRN 03/16/19 [History] Calcium Carb/Magnesium Hydrox [Rolaids Chewable Tablet] 2 tab PO Q8H PRN 03/16/19 [History] Omeprazole 20 mg PO DAILY 03/16/19 [History] Ondansetron HCl [Zofran] 8 mg PO Q8H PRN 03/16/19 [History] Gas Relief 180mg 180 mg PO QID PRN 10/12/20 [History] Ketorolac [Toradol] 10 mg PO QID PRN 10/12/20 [History] predniSONE See Taper PO DIRECTED 10/12/20 [History] Follow up Appointment(s)/Referral(s): Princess Mcgrath DO [Primary Care Provider] - 1-2 days Discharge Disposition: Left Against Medical Advice
== END 2020-10-13 13:29 | disposition left against medical advice (07) | DRG 897 ==
LOC: EC 22:10 → 4SSUR 10-12 00:11
PROVIDERS: ADMIT Hospitalist; ATTEND Hospitalist
DX: F10.231 Alcohol dependence with withdrawal delirium (principal); I77.4 Celiac artery compression syndrome; F17.210 Nicotine dependence, cigarettes, uncomplicated; Z71.6 Tobacco abuse counseling; F29 Unspecified psychosis not due to a substance or known physiological condition; F41.9 Anxiety disorder, unspecified; K21.9 Gastro-esophageal reflux disease without esophagitis; K29.20 Alcoholic gastritis without bleeding; Z60.2 Problems related to living alone; Z79.899 Other long term (current) drug therapy; Z88.5 Allergy status to narcotic agent; Z91.018 Allergy to other foods
CPT/HCPCS: 36415; 71046; 80048; 80053; 80306; 80320; 80329; 81003; 83520; 83690; 83735; 84484; 85025; 85027; 85610; 85730; 93005; 96361; 96365; 96372; 96374; 96375; 96376; 99285

== ENCOUNTER → 2021-05-06 | Day surgery (SDC) | payer MEDICARE ==
[2021-05-04 10:12] VITALS: BMI 25.8
[~2021-05-06] MED LIST changes: +GLUCAGON 1 MG/ML VIAL ONE; +LACTATED RINGERS 1,000 ML IV SCH; +LIDOCAINE 1% INJ 10MG/ML (20 ML MDV) ONE; +PROPOFOL 10 MG/ML 20 ML VIAL IV ONE; -THIAMINE 100 MG TAB PO SCH
[2021-05-06 08:13] VITALS: RESP 16; TEMP 98.9
--- NOTE | 2021-05-06 08:34 | P.GSHP ---
History of Present Illness H&P Date: 05/06/21 Chief Complaint: GI bleed This is a 60-year-old male presents today for EGD and colonoscopy. Patient blood in stool. He presents today for upper and lower endoscopy. Past Medical History Additional Past Medical History / Comment(s): chronic abd pain, pancreatitis, celiac, celiac arterial compression syndrome, anxiety, ETOH ABUSE-PAST History of Any Multi-Drug Resistant Organisms: None Reported Past Surgical History: Hernia Repair Additional Past Surgical History / Comment(s): colonoscopy, endoscopy, Past Anesthesia/Blood Transfusion Reactions: No Reported Reaction Smoking Status: Current every day smoker - Past Family History Mother Family Medical History: Cancer Medications and Allergies Home Medications Medication Instructions Recorded Confirmed Type Cyclobenzaprine [Flexeril] 10 mg PO HS 05/04/21 05/06/21 History Ibuprofen [Motrin] 600 mg PO Q8HR PRN 05/04/21 05/06/21 History Melatonin 10 mg PO HS 05/04/21 05/06/21 History QUEtiapine [SEROquel] 25 mg PO HS 05/04/21 05/06/21 History Allergies Allergy/AdvReac Type Severity Reaction Status Date / Time codeine phosphate AdvReac Nausea Verified 05/06/21 08:13 [From Tylenol-Codeine #3] brazil nuts Allergy Anaphylaxis Uncoded 05/06/21 08:13 Surgical - Exam Vital Signs Temp Pulse Resp BP Pulse Ox 98.9 F 79 16 144/83 98 05/06/21 08:04 05/06/21 08:04 05/06/21 08:04 05/06/21 08:04 05/06/21 08:04 - General well developed, well nourished, no distress - Eyes PERRL - ENT normal pinna, normal nares - Neck no masses - Respiratory normal expansion - Cardiovascular Rhythm: regular - Abdomen Abdomen: soft, non tender Assessment and Plan Assessment: Blood in stool. We'll perform upper and lower endoscopy.
--- NOTE | 2021-05-06 08:54 | P.OP ---
Description of Procedure: The patient's placed on the endoscopy table in the lateral position. He received IV sedation. The gastroscope placed oropharynx passed in the esophagus and into the stomach. Scope was placed through the pylorus. First and second portion of the duodenum appeared normal. Scope was then brought back the antrum this was mildly inflamed. A biopsies performed. Scope was then retroflexed and the remainder of the stomach appeared normal. There was no significant hiatal hernia. The GE junction was at 40 cms. The distal esophagus appeared mildly inflamed and a biopsy was performed. The proximal esophagus appeared normal. Scope was withdrawn for patient. Next digital rectal exam was performed. This revealed no abnormalities. The flexible colonoscope was then placed patient anus and passed throughout the colon. The scope could not be placed into the cecum secondary to tortuosity the of the bowel. Several attempts were made to maneuver the colonoscope was cecum however this is possible. At this point the scope was withdrawn. The transverse colon, descending colon and sigmoid colon appeared normal. Scope was brought back the rectum this appeared normal. Scope was then withdrawn for patient. The patient was scheduled for a barium enema to evaluate the right colon.
[2021-05-06 09:15] VITALS: BP 120/74; PULSE 70
--- NOTE | 2021-05-06 17:06 | FL ---
EXAMINATION TYPE: FL barium enema w air contrast DATE OF EXAM: 05/06/2021 COMPARISON: CT abdomen and pelvis March 16, 2019 HISTORY: Incomplete routine colonoscopy. TECHNIQUE: A double contrast barium enema study is performed. A total 2.27 minutes fluoroscopic time . 23 spot images saved to PACS. FINDINGS: Operations Engineer view of the abdomen shows overall non-obstructive bowel gas pattern. There is successful contrast filling to the cecum. Evaluation for polyps suboptimal as there is signi ficantly redundant sigmoid colon making more contrast than typical necessary to reach cecum. No obstr ucting or constricting lesion is identified. Appendix and terminal ileum not filled. IMPRESSION: Suboptimal study but successful filling to cecum without obstructing or constricting olesya plasm.
== END ==
LOC: ORWHC2ENDO 07:50
PROVIDERS: ATTEND Surgery
DX: K29.50 Unspecified chronic gastritis without bleeding (principal); K21.9 Gastro-esophageal reflux disease without esophagitis; Q43.8 Other specified congenital malformations of intestine; G89.29 Other chronic pain; R10.9 Unspecified abdominal pain; Z87.19 Personal history of other diseases of the digestive system; I77.4 Celiac artery compression syndrome; F10.11 Alcohol abuse, in remission; F17.210 Nicotine dependence, cigarettes, uncomplicated; Z98.890 Other specified postprocedural states; Z79.899 Other long term (current) drug therapy; Z88.5 Allergy status to narcotic agent; Z91.018 Allergy to other foods
CPT/HCPCS: 88305; 74280; 45378; 43239; J1610; J2001; J2704

== ENCOUNTER → 2021-07-16 | Outpatient (CLI) | payer MEDICARE ==
[2021-07-16 15:00] LABS: Anisocytosis Slight; HCT 41.9 % (39.0-53.0); HGB 13.7 gm/dL (13.0-17.5); MCH 28.7 pg (25.0-35.0); MCHC 32.8 g/dL (31.0-37.0); MCV 87.4 fL (80.0-100.0); Mean Platelet Volume 7.3; Platelet Count 371 k/uL (150-450); RBC 4.79 m/uL (4.30-5.90); RDW 16.4 % (11.5-15.5)
== END | disposition home or self-care (01) ==
LOC: LABPAT 13:28
PROVIDERS: ATTEND Surgery
DX: Z01.812 Encounter for preprocedural laboratory examination (principal); K40.91 Unilateral inguinal hernia, without obstruction or gangrene, recurrent; R94.31 Abnormal electrocardiogram [ECG] [EKG]
CPT/HCPCS: 36415; 85027; 93005

== ENCOUNTER 2021-07-20 06:00 | Day surgery (SDC) | payer MEDICARE ==
[2021-07-19 09:01] VITALS: BMI 24.3
[2021-07-20] MEDS ORDERED: LACTATED RINGERS 1,000 ML IV ONE (06:41)
[2021-07-20] MEDS ORDERED: DEXAMETHASONE SOD PHOSPHATE 4 MG/ML 1 ML VIAL IV ONE (06:42)
[2021-07-20] MEDS ORDERED: DEXAMETHASONE SOD PHOSPHATE 4 MG/ML 1 ML VIAL IVP ONE (06:42)
[2021-07-20] MEDS ORDERED: ONDANSETRON 4 MG/2 ML VIAL IVP ONE (06:43)
[2021-07-20] MEDS ORDERED: ONDANSETRON 4 MG/2 ML VIAL ONE (06:48)
[2021-07-20] MEDS ORDERED: HEPARIN SODIUM,PORCINE/PF 5,000 UNIT/0.5 ML SYRINGE SQ ONE (06:49)
[2021-07-20] MEDS ORDERED: fentaNYL (PF) 50 MCG/ML 2 ML AMP IVP ONE (07:00)
[2021-07-20] MEDS ORDERED: HEPARIN SODIUM,PORCINE 5,000 UNIT/ML 1 ML VIAL SQ ONE (07:00)
[2021-07-20] MEDS ORDERED: ACETAMINOPHEN TAB 500 MG TAB PO ONE (07:00)
[2021-07-20] MEDS ORDERED: MIDAZOLAM 2 MG/2 ML VIAL IVP ONE (07:00)
--- NOTE | 2021-07-20 07:20 | P.ANPRN ---
Procedure Note - Anesthesia - Nerve Block Performed Bilateral Erector Spinae Single Time Out Performed: Yes Date of Procedure: 07/20/21 Procedure Start Time: 06:59 Procedure Stop Time: 07:06 Location of Patient: PreOp Indication: Requested by Surgeon Specifically requested for management of pain by DrVikas: Jamie Burnett Sedation Type: Sedate with meaningful contact maintained Preparation: Sterile Prep Position: Prone Needle Types: Pajunk Needle Gauge: 21 Ultrasound used to observe medication spread: Yes Injectate: 0.5% Ropivacaine (see comment for volume) Blood Aspirated: No Pain Paresthesia on Injection Noted: No Resistance on Injection: Normal (15 ml Ropivacaine 0.5 % plus 4 mg Dexamethasone plus 15 ml 0,9 % NS Per side) Image Stored and Saved: Yes Events: Uneventful and Well Tolerated
[2021-07-20] MEDS ORDERED: ACETAMINOPHEN TAB 500 MG TAB ONE (07:22)
[2021-07-20] MEDS ORDERED: KETAMINE 10 MG/ML 20 ML VIAL ONE (07:51)
[2021-07-20] MEDS ORDERED: KETOROLAC 15 MG/ML 1 ML VIAL ONE (07:51)
[2021-07-20] MEDS ORDERED: SUCCINYLCHOLINE CHLORIDE 100 MG/5 ML SYR IV ONE (07:51)
[2021-07-20] MEDS ORDERED: GLYCOPYRROLATE 0.2 MG/ML 2 ML VIAL ONE (07:51)
[2021-07-20] MEDS ORDERED: ROCURONIUM 10 MG/ML (5 ML VIAL) IV ONE (07:51)
[2021-07-20] MEDS ORDERED: MIDAZOLAM 2 MG/2 ML VIAL ONE (07:51)
[2021-07-20] MEDS ORDERED: SODIUM CHLORIDE 0.9% (PF) 10 ML VIAL ONE (07:51)
[2021-07-20] MEDS ORDERED: LIDOCAINE 1% INJ 10MG/ML (20 ML MDV) ONE (07:51)
[2021-07-20] MEDS ORDERED: PROPOFOL 10 MG/ML 20 ML VIAL IV ONE (07:51)
[2021-07-20] MEDS ORDERED: fentaNYL (PF) 50 MCG/ML 2 ML AMP ONE (07:51)
[2021-07-20] MEDS ORDERED: ROPIVACAINE 5 MG/ML 30 ML VIAL ONE (07:51)
[2021-07-20] MEDS ORDERED: NEOSTIGMINE 1 MG/ML 10 ML VIAL ONE (07:51)
[2021-07-20] MEDS ORDERED: DEXAMETHASONE SOD PHOSPHATE 4 MG/ML 1 ML VIAL ONE (07:51)
--- NOTE | 2021-07-20 08:04 | P.GSHP ---
History of Present Illness H&P Date: 07/20/21 Chief Complaint: Recurrent right inguinal hernia Is a 60-year-old male who has developed a recurrent right inguinal hernia. Patient presents today for laparoscopic robotic system repair. Past Medical History Additional Past Medical History / Comment(s): hx pancreatitis, celiac arterial compression syndrome, ETOH ABUSE-PAST, right inguinal hernia., sciatica pain. History of Any Multi-Drug Resistant Organisms: MRSA Date of last positivie culture/infection: 2010 MDRO Source:: mosquito bite Past Surgical History: Hernia Repair Additional Past Surgical History / Comment(s): colonoscopy, endoscopy, right and left inguinal hernia repair Past Anesthesia/Blood Transfusion Reactions: No Reported Reaction Past Psychological History: Anxiety Smoking Status: Current every day smoker Past Alcohol Use History: None Reported, Abuse Additional Past Alcohol Use History / Comment(s): SMOKES 1 PPD SINCE AGE 23. quit drinking 8 months ago Past Drug Use History: None Reported, Marijuana Additional Drug Use History / Comment(s): denies current marijuana use - Past Family History Mother Family Medical History: Cancer Medications and Allergies Home Medications Medication Instructions Recorded Confirmed Type Cyclobenzaprine [Flexeril] 10 mg PO HS 05/04/21 07/19/21 History Ibuprofen [Motrin] 600 mg PO Q8HR PRN 05/04/21 07/19/21 History QUEtiapine [SEROquel] 25 mg PO HS 05/04/21 07/19/21 History Aspirin 650 mg PO DIRECTED PRN 07/19/21 07/19/21 History Melatonin 10 mg PO HS PRN 07/19/21 07/19/21 History Multivitamins, Thera [Multivitamin 1 tab PO DAILY 07/19/21 07/19/21 History (formulary)] diphenhydrAMINE [Benadryl] 50 mg PO HS PRN 07/19/21 07/19/21 History Allergies Allergy/AdvReac Type Severity Reaction Status Date / Time codeine phosphate AdvReac Nausea Verified 07/20/21 06:23 [From Tylenol-Codeine #3] brazil nuts Allergy Anaphylaxis Uncoded 07/20/21 06:23 Surgical - Exam Vital Signs Temp Pulse Resp BP Pulse Ox 97.6 F 72 15 142/81 98 07/20/21 06:29 07/20/21 06:29 07/20/21 06:29 07/20/21 06:29 07/20/21 06:29 - General well developed, well nourished, no distress - Eyes PERRL - ENT normal pinna - Neck no masses - Respiratory normal expansion - Cardiovascular Rhythm: regular - Abdomen Abdomen: soft, non tender Hernia: inguinal (Recurrent right inguinal hernia) Assessment and Plan Assessment: Recurrent right inguinal hernia. We'll perform laparoscopic robotic-assisted repair.
[2021-07-20] MEDS ORDERED: BUPIVACAINE (PF) 0.5% 30 ML VIAL SQ ONE (08:18)
--- NOTE | 2021-07-20 08:54 | P.OP ---
Date of Procedure: 07/20/21 Preoperative Diagnosis: Recurrent right inguinal hernia Postoperative Diagnosis: Recurrent right inguinal hernia Procedure(s) Performed: Laparoscopic robotic-assisted repair of inguinal hernia Anesthesia: RAMILA Surgeon: Jamie Burnett Estimated Blood Loss (ml): 5 Pathology: none sent Condition: stable Disposition: PACU Description of Procedure: The patient's placed on the operating table in the supine position. The patient received general anesthesia. The patient's abdomen was prepped and draped in usual sterile fashion. The skin was anesthetized 1% local Xylocaine at the incision sites. Using an 11 blade a skin incision was made at the umbilicus. The fascia was grasped with a Rina and then the peritoneal cavity was entered with the Veress needle. Position of the Veress needle was confirmed with a positive drop test. After adequate insufflation a 5 mm trocar was placed into the peritoneal cavity. The Laparoscope was placed the peritoneal cavity. And a robotic 8 mm trocar was placed in the right lateral position and then another 8 mm robotic trochars placed in the left lateral position. The original 5 mm trocar was exchanged for a 12 mm trocar. The patient was placed in reverse Trendelenburg and then the patient was docked to the robot. Next the peritoneum over top of the hernia was incised and then using blunt and sharp dissection and electrocautery the hernia sac was dissected free from the floor of the inguinal canal. The hernia sac was completely reduced into the peritoneal cavity. And then using the Pro automotive mechanical engineer mesh the hernia was repaired. The peritoneum was then sutured with 20V lock suture. The patient was then undocked the robot. The needle was withdrawn from the peritoneal cavity. The umbilical trocar site was closed with 0 Ethibond suture. The skin was closed interrupted 3-0 Monocryl suture. Dermabond dressing was applied. Patient was sent to recovery in stable condition.
[2021-07-20 09:01] VITALS: TEMP 98
[2021-07-20 09:12] VITALS: RESP 16
[2021-07-20 10:13] VITALS: BP 154/68; PULSE 81
== END 2021-07-20 10:20 | disposition home or self-care (01) ==
LOC: OR 06:00
PROVIDERS: ATTEND Surgery
DX: K40.91 Unilateral inguinal hernia, without obstruction or gangrene, recurrent (principal); F17.200 Nicotine dependence, unspecified, uncomplicated; F12.90 Cannabis use, unspecified, uncomplicated; F41.8 Other specified anxiety disorders; Z79.82 Long term (current) use of aspirin; Z79.84 Long term (current) use of oral hypoglycemic drugs; Z79.1 Long term (current) use of non-steroidal anti-inflammatories (NSAID); Z88.5 Allergy status to narcotic agent; Z88.6 Allergy status to analgesic agent
CPT/HCPCS: 49651; 64999; C1781; J2250; J1644; J1100; J2710; J0690; J2405; J2001; J3010; J2795; J1885; J0330; J2704